=== PATIENT | female | born 1940 | race African-American/Black ===

== ENCOUNTER 2018-07-07 14:16 | Inpatient (IN) | payer MEDICARE, OTHER ==
[~2018-07-07] VITALS: Ht 170.2 cm; Wt 136.1 kg
--- NOTE | 2018-07-07 14:50 | NUR ---
ED Nurse Note: Pt. AAOx4. Wheeled in to the room. pt. came in due to the swelling on bilateral feet. redness noted on her RLE. Pt. denies any pain on her legs. Dr. Dietrich offered pt. pain medication but pt. refused because per pt. she is not in pain at this time. pt. denies CP and SOB. denies cough. Pt. changed into a gown and attached to site monitor for continuous monitoring. Per pt., Dr. Metzger asked her to go to ER.
--- NOTE | 2018-07-07 14:56 | NUR ---
ED Nurse Note: Dr. Dietrich offered pt. urinary catheter due to administartion of lasix but pt. refused. Placed commode at the bedside
[2018-07-07] MEDS ORDERED: Tetanus/Diptheria/Pertussis Vaccine 0.5ml Syr IM ONE (15:00)
--- NOTE | 2018-07-07 15:08 | Emergency Room Report ---
History of Present Illness General Chief Complaint: Pain Source: Patient Present Illness HPI Patient presents with bilateral leg edema and discoloration and pain that's worsened over the last 3 weeks. She has obesity and hypertension. She denies any diabetes. She's been evaluated for blood clots in the past and says that she's never had a blood clot. She also denies a productive cough, hemoptysis pleuritic chest pain or any chest pain at this time. There is no nausea vomiting or diarrhea or dysuria. She has particular pain in her heels and also in the first metatarsal phalangeal area. She denies any numbness. She states is greater than 10 years since her last tetanus vaccination. She rates the pain 2/10 slightly burning radiating up into her legs. She was doing exercises in the pool but had difficulty arranging the sessions. She states her activity is minimal at this time. She does not modify her diet. She denies depression but is discouraged about losing weight. Allergies: Coded Allergies: No Known Allergies (Unverified , 07/07/18) Patient History Past Medical History: see triage record Social History: Denies: smoking, alcohol use, drug use Social History Narrative lives at [facility] Now: No Reviewed Nursing Documentation: PMH: Agreed; PSxH: Agreed Nursing Documentation-PMH Past Medical History: No History, Except For Hx Hypertension: Yes Review of Systems All Other Systems: negative except mentioned in HPI Physical Exam Vital Signs Date Time Temp Pulse Resp B/P (MAP) Pulse Ox O2 Delivery O2 Flow Rate FiO2 07/07/18 14:23 98.2 84 20 167/90 98 Room Air Sp02 EP Interpretation: reviewed, normal General Appearance: no apparent distress, GCS 15, obese Head: normocephalic Eyes: bilateral eye normal inspection, bilateral eye PERRL ENT: moist mucus membranes Neck: supple Respiratory: lungs clear, normal breath sounds Cardiovascular #1: regular rate, rhythm, edema - 3+ brawny edema Cardiovascular #2: 2+ radial (R) Gastrointestinal: normal bowel sounds, non tender, soft, overweight Genitourinary: no CVA tenderness Musculoskeletal: back normal, gait/station normal, normal range of motion, Soo's Sign negative Neurologic: alert, oriented x3, grossly normal Psychiatric: mood/affect normal Skin: warm/dry, other - brawney erythematous edema worse on R Medical Decision Making Diagnostic Impression: Primary Impression: Cellulitis, leg Qualified Codes: L03.119 - Cellulitis of unspecified part of limb Additional Impressions: Morbid obesity Leg edema ER Course Patient presents with bilateral leg edema and discoloration. Differential includes venous stasis disease, cellulitis, DVT amongst others. There is no evidence of pulmonary embolus at this time based on her exam. The patient will be evaluated for possible sepsis including EKG and chest x-ray. The patient retreated with Lasix, tetanus. She declines pain medication at this time. In addition antibiotics will be started. EKG without injury. Chest x-ray no infiltrates with mild cardiomegaly. Labs with elevated white count and ESR. CMP essentially normal. BNP is slightly elevated. Urinalysis unremarkable. Antibiotics are begun. Lasix is causing diuresis. Patient is improved but needs IV antibiotics and continued diuresis. Patient admitted to medical floor under the care of Dr. Metzger. Laboratory Tests Test 07/07/18 15:00 07/07/18 16:15 White Blood Count 13.8 K/UL (4.8-10.8) H Red Blood Count 4.39 M/UL (4.20-5.40) Hemoglobin 13.6 G/DL (12.0-16.0) Hematocrit 40.7 % (37.0-47.0) Mean Corpuscular Volume 93 FL (80-99) Mean Corpuscular Hemoglobin 31.1 PG (27.0-31.0) H Mean Corpuscular Hemoglobin Concent 33.5 G/DL (32.0-36.0) Red Cell Distribution Width 11.6 % (11.6-14.8) Platelet Count 216 K/UL (150-450) Mean Platelet Volume 7.8 FL (6.5-10.1) Neutrophils (%) (Auto) 80.5 % (45.0-75.0) H Lymphocytes (%) (Auto) 10.9 % (20.0-45.0) L Monocytes (%) (Auto) 6.4 % (1.0-10.0) Eosinophils (%) (Auto) 1.1 % (0.0-3.0) Basophils (%) (Auto) 1.1 % (0.0-2.0) Erythrocyte Sedimentation Rate 70 MM/HR (0-30) H Prothrombin Time 10.9 SEC (9.30-11.50) Prothrombin Time INR 1.0 (0.9-1.1) PTT 26 SEC (23-33) Sodium Level 143 MMOL/L (136-145) Potassium Level 4.1 MMOL/L (3.5-5.1) Chloride Level 105 MMOL/L (98-107) Carbon Dioxide Level 29 MMOL/L (21-32) Anion Gap 9 mmol/L (5-15) Blood Urea Nitrogen 16 mg/dL (7-18) Creatinine 0.9 MG/DL (0.55-1.30) Estimate Glomerular Filtration Rate mL/min (>60) Glucose Level 110 MG/DL (74-106) H Lactic Acid Level 1.90 mmol/L (0.4-2.0) Uric Acid 6.8 MG/DL (2.6-7.2) Calcium Level 9.4 MG/DL (8.5-10.1) Magnesium Level 2.2 MG/DL (1.8-2.4) Total Bilirubin 0.9 MG/DL (0.2-1.0) Aspartate Amino Transferase (AST) 114 U/L (15-37) H Alanine Aminotransferase (ALT) 35 U/L (12-78) Alkaline Phosphatase 70 U/L (46-116) Total Creatine Kinase 3316 U/L (26-308) H Troponin I 0.000 ng/mL (0.000-0.056) Pro-B-Type Natriuretic Peptide 159 pg/mL (0-125) H Total Protein 7.8 G/DL (6.4-8.2) Albumin 3.4 G/DL (3.4-5.0) Globulin 4.4 g/dL Albumin/Globulin Ratio 0.8 (1.0-2.7) L Urine Color Yellow Urine Appearance Slightly cloudy Urine pH 5 (4.5-8.0) Urine Specific [place] 1.020 (1.005-1.035) Urine Protein 2+ (NEGATIVE) H Urine Glucose (UA) Negative (NEGATIVE) Urine Ketones 2+ (NEGATIVE) H Urine Blood 2+ (NEGATIVE) H Urine Nitrite Negative (NEGATIVE) Urine Bilirubin Negative (NEGATIVE) Urine Urobilinogen Normal MG/DL (0.0-1.0) Urine Leukocyte Esterase 1+ (NEGATIVE) H Urine RBC 5-10 /HPF (0 - 2) H Urine WBC 2-4 /HPF (0 - 2) Urine Squamous Epithelial Cells Moderate /LPF (NONE/OCC) H Urine Bacteria Moderate /HPF (NONE) H EKG Diagnostic Results Rate: normal Rhythm: NSR ST Segments: no acute changes - Left ventricular hypertrophy Rhythm Strip Diag. Results EP Interpretation: yes Rhythm: NSR, no PVC's, no ectopy Chest X-Ray Diagnostic Results Chest X-Ray Diagnostic Results : Chest X-Ray Ordered: Yes # of Views/Limited/Complete: 1 View Indication: Other Interpretation: no consolidation, no effusion, no pneumothorax, other - Increased heart size Impression: No acute disease Electronically Signed by: Electronically signed by Peter Dietrich MD Last Vital Signs Date Time Temp Pulse Resp B/P (MAP) Pulse Ox O2 Delivery O2 Flow Rate FiO2 07/07/18 17:10 98.0 89 20 152/83 100 Room Air Status: improved Disposition: ADMITTED INPATIENT Condition: Serious Referrals: Hudson Metzger MD (PCP) Peter Dietrich MD Jul 07, 2018 15:08
[2018-07-07 15:10] VITALS: BP 195/115
--- NOTE | 2018-07-07 15:18 | NUR ---
ED Nurse Note: unable to scan tdap. Used 2 bar scanners but usman did not scan. All other computers are being used by [facility] nurses
[2018-07-07 15:35] LABS: BASOPHILS % (AUTO) 1.1 % (0.0-2.0); EOSINOPHILS % (AUTO) 1.1 % (0.0-3.0); HEMATOCRIT 40.7 % (37.0-47.0); HEMOGLOBIN 13.6 G/DL (12.0-16.0); LYMPHOCYTES % (AUTO) 10.9 % (20.0-45.0); MEAN CORPUSCULAR VOLUME 93 FL (80-99); MONOCYTES % (AUTO) 6.4 % (1.0-10.0); NEUTROPHILS % (AUTO) 80.5 % (45.0-75.0); PLATELET COUNT 216 K/UL (150-450); RED BLOOD COUNT 4.39 M/UL (4.20-5.40); RED CELL DISTRIBUTION WIDTH 11.6 % (11.6-14.8); WHITE BLOOD COUNT 13.8 K/UL (4.8-10.8)
[2018-07-07 15:51] LABS: ANION GAP 9 mmol/L (5-15); BLOOD UREA NITROGEN 16 mg/dL (7-18); CALCIUM 9.4 MG/DL (8.5-10.1); CARBON DIOXIDE 29 MMOL/L (21-32); CHLORIDE 105 MMOL/L (98-107); CREATININE 0.9 MG/DL (0.55-1.30); POTASSIUM 4.1 MMOL/L (3.5-5.1); SODIUM 143 MMOL/L (136-145)
--- NOTE | 2018-07-07 15:58 | NUR ---
ED Nurse Note: assisted pt. to use bedside commode
[2018-07-07 16:08] LABS: ALANINE AMINOTRANSFERASE 35 U/L (12-78); ALBUMIN 3.4 G/DL (3.4-5.0); ALBUMIN/GLOBULIN RATIO 0.8 (1.0-2.7); ALKALINE PHOSPHATASE 70 U/L (46-116); ASPARTATE AMINO TRANSFERASE 114 U/L (15-37); BILIRUBIN,TOTAL 0.9 MG/DL (0.2-1.0); CREATINE KINASE 3316 U/L (26-308)
--- NOTE | 2018-07-07 16:13 | NUR ---
ED Nurse Note: assisted pt. to go to the bedside commode
[2018-07-07 16:14] VITALS: BP 152/83
--- NOTE | 2018-07-07 16:38 | NUR ---
ED Nurse Note: pt. aware of the admission. Pt. is currently sleeping at this time
[2018-07-07 16:42] LABS: APPEARANCE,URINE SLIGHTLY CLOUDY; BILIRUBIN, URINE NEGATIVE (NEGATIVE); GLUCOSE, URINE (UA) NEGATIVE (NEGATIVE); KETONES,URINE 2+ (NEGATIVE); LEUKOCYTE ESTERASE ,URINE 1+ (NEGATIVE); NITRITE,URINE NEGATIVE (NEGATIVE); PH,URINE 5 (4.5-8.0); PROTEIN,URINE 2+ (NEGATIVE); UROBILINOGEN,URINE NORMAL MG/DL (0.0-1.0)
[2018-07-07 16:44] LABS: COLOR,URINE YELLOW
--- NOTE | 2018-07-07 17:06 | NUR ---
ED Nurse Note: Report given to DEVAN Concepcion via telephone report
--- NOTE | 2018-07-07 17:25 | NUR ---
NURSE NOTES: Received pt at 1725, pt in bed with grandson at bedside. Pt a/o x 4 in no acute distress. Pt denies chest pain, SOB. BP 180/99. Dr. Metzger notified, obtained med orders. Patent IV to right FA. Lower extremity swelling, no open ulcers. Pt left in bed in low position, call light within reach, bed alarm on, BSC at bedside. Pt oriented to room and facility.
--- NOTE | 2018-07-07 17:45 | Geriatric Progress Note ---
Subjective Interval Events Patient reports sting pain, inability to stand over 4-5 days. Called paramedics x 4 to help her move. Spent last night on floor because of inability to stand. Brought to ED. In ED evaluation revealed erythema, tenderness to B distal LEs - ?dx of cellulitis. Admitted for further evaluation and tx. Patient in past recalcitrant to take meds or proceed with dx, tx measures. Present in March 2018 in office having stopped bp meds, taking only vit C & E. In May 2018, noted to have increased distal LE edema, with some chronic changes. No erythema, tenderness or calor, noted. Need for weight loss, HTN tx reviewed. Patient declined. PMH: Chronic LE edema, likely venous insufficiency. Generalized arthritis, likely osteoarthritis, exacerbated by weight issues. Possible component of peripheral neuropathy associated with LE dysesthesias. 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 Hx HTN. Hx "borderline" DM. "Fibroid" breasts. Morbid obesity. ? Sleep disorder. Gait instability. PE notable for moderate distal erythema, tenderness below knees bilateral LEs. No definite calf tenderness. Labs notable for mild leukocytosis, significant elevation CK. Imp: LE edema/osteoarthritis with/without cellulitis leading to pain, tenderness, inability to bear weight. Doubt DVT. Poorly controlled bp. Suspect venous insufficiency. ? underlying DM. ? Geriatric Geriatric Last 24 Hour Vital Signs Date Time Temp Pulse Resp B/P (MAP) Pulse Ox O2 Delivery O2 Flow Rate FiO2 07/07/18 17:10 98.0 89 20 152/83 100 Room Air 07/07/18 16:14 98.2 89 20 152/83 100 Room Air 07/07/18 15:10 98.2 90 20 195/115 98 Room Air 07/07/18 14:23 98.2 84 20 167/90 98 Room Air Laboratory Tests Test 07/07/18 15:00 07/07/18 16:15 White Blood Count 13.8 K/UL (4.8-10.8) H Red Blood Count 4.39 M/UL (4.20-5.40) Hemoglobin 13.6 G/DL (12.0-16.0) Hematocrit 40.7 % (37.0-47.0) Mean Corpuscular Volume 93 FL (80-99) Mean Corpuscular Hemoglobin 31.1 PG (27.0-31.0) H Mean Corpuscular Hemoglobin Concent 33.5 G/DL (32.0-36.0) Red Cell Distribution Width 11.6 % (11.6-14.8) Platelet Count 216 K/UL (150-450) Mean Platelet Volume 7.8 FL (6.5-10.1) Neutrophils (%) (Auto) 80.5 % (45.0-75.0) H Lymphocytes (%) (Auto) 10.9 % (20.0-45.0) L Monocytes (%) (Auto) 6.4 % (1.0-10.0) Eosinophils (%) (Auto) 1.1 % (0.0-3.0) Basophils (%) (Auto) 1.1 % (0.0-2.0) Erythrocyte Sedimentation Rate 70 MM/HR (0-30) H Prothrombin Time 10.9 SEC (9.30-11.50) Prothromb Time International Ratio 1.0 (0.9-1.1) Activated Partial Thromboplast Time 26 SEC (23-33) Sodium Level 143 MMOL/L (136-145) Potassium Level 4.1 MMOL/L (3.5-5.1) Chloride Level 105 MMOL/L (98-107) Carbon Dioxide Level 29 MMOL/L (21-32) Anion Gap 9 mmol/L (5-15) Blood Urea Nitrogen 16 mg/dL (7-18) Creatinine 0.9 MG/DL (0.55-1.30) Estimat Glomerular Filtration Rate mL/min (>60) Glucose Level 110 MG/DL (74-106) H Lactic Acid Level 1.90 mmol/L (0.4-2.0) Uric Acid 6.8 MG/DL (2.6-7.2) Calcium Level 9.4 MG/DL (8.5-10.1) Magnesium Level 2.2 MG/DL (1.8-2.4) Total Bilirubin 0.9 MG/DL (0.2-1.0) Aspartate Amino Transf (AST/SGOT) 114 U/L (15-37) H Alanine Aminotransferase (ALT/SGPT) 35 U/L (12-78) Alkaline Phosphatase 70 U/L (46-116) Total Creatine Kinase 3316 U/L (26-308) H Troponin I 0.000 ng/mL (0.000-0.056) Pro-B-Type Natriuretic Peptide 159 pg/mL (0-125) H Total Protein 7.8 G/DL (6.4-8.2) Albumin 3.4 G/DL (3.4-5.0) Globulin 4.4 g/dL Albumin/Globulin Ratio 0.8 (1.0-2.7) L Urine Color Yellow Urine Appearance Slightly cloudy Urine pH 5 (4.5-8.0) Urine Specific [place] 1.020 (1.005-1.035) Urine Protein 2+ (NEGATIVE) H Urine Glucose (UA) Negative (NEGATIVE) Urine Ketones 2+ (NEGATIVE) H Urine Blood 2+ (NEGATIVE) H Urine Nitrite Negative (NEGATIVE) Urine Bilirubin Negative (NEGATIVE) Urine Urobilinogen Normal MG/DL (0.0-1.0) Urine Leukocyte Esterase 1+ (NEGATIVE) H Urine RBC 5-10 /HPF (0 - 2) H Urine WBC 2-4 /HPF (0 - 2) Urine Squamous Epithelial Cells Moderate /LPF (NONE/OCC) H Urine Bacteria Moderate /HPF (NONE) H Height (Feet): 5 Height (Inches): 4.00 Weight (Pounds): 300 Hudson Metzger MD Jul 07, 2018 17:45
[2018-07-07 18:05] VITALS: BP 180/99
[2018-07-07 19:15] VITALS: BP 174/104
--- NOTE | 2018-07-07 19:40 | NUR ---
NURSE NOTES: Received patient in bed, alert x 4, able to make needs known, Bed in low position and lock engaged, Instructed how to use call light, Call light and need with in reach, Will continue to monitor.
--- NOTE | 2018-07-07 19:53 | NUR ---
HAND-OFF: Report given to DEVAN Espinoza. Endorsed BP 174/104 15 min s/p norvasc administration. Nurse to flu on BP. Wesley HARTMAN
--- NOTE | 2018-07-07 20:45 | NUR ---
NURSE NOTES: Orthostatic vital sign taken, Patient refused taking blood pressure with standing position, Explained benefits and risks, Patient verbalized understanding, but still refused.
[2018-07-07] MEDS: NovoLOG Insulin Flexpen SUBQ SCH (21:00)
[2018-07-07] MEDS: Enoxaparin 40mg Inj SUBQ SCH (21:00)
[2018-07-08] VITALS: BP 161/101
[2018-07-08 04:00] VITALS: BP 159/89
--- NOTE | 2018-07-08 05:00 | History and Physical Report ---
DATE OF ADMISSION: 07/07/2018 PATIENT ID: The patient is an 78-year-old woman, who presented to emergency room with inability to stand due to pain in both her distal lower extremities. HISTORY OF PRESENT ILLNESS: The patient, who has a number of chronic medical problems, has been somewhat recalcitrant to therapy. She had a history of hypertension, morbid obesity, and borderline diabetes as well as visual loss due to Fuchs dystrophy and cataracts. She was started on antihypertensive therapy, but after not being seen for approximately 10 months, presented to the office in March 2018 reporting that she had stopped her blood pressure medications and was taking only vitamin C and E and feeling that she was better off the medications. In May 2018, she presented with increased distal lower extremity edema with some chronic changes. At that time, there is no erythema, tenderness, or calor. The need for both weight loss and hypertensive therapy were reviewed with the patient, but she declined feeling that she did not benefit from attempts at weight control and antihypertensives. She described some distal lower extremity discomfort at that time, but was primary concerned about what she described as "bumps" on her lower extremities, which appeared to look like chronic venous stasis changes. According to the patient's history, she began to develop markedly increased discomfort in the lower extremities with stinging pain on attempting to stand over the last four to five days. She had to call the paramedics on four occasions in order to help move when she was incapacitated. Reportedly, she spent last night on the floor because of inability to stand on her own. She called this morning and was subsequently brought to the emergency department for further evaluation and treatment. In the emergency department, she was noted to have erythema and tenderness in bilateral distal lower extremities. Dr. Dietrich felt the patient may have evidence of a cellulitis. The patient was admitted for further evaluation and treatment. The patient denies having any additional symptoms other than that described. She specifically denies having any chest pain, palpitation, shortness of breath, fever, or chills. PAST MEDICAL HISTORY: 1. The patient's past medical history is notable for chronic lower extremity edema present for years, likely primarily associated with venous insufficiency, but possibly multifactorial. 2. History of generalized arthritis, likely osteoarthritis, exacerbated by weight issues. 3. Possible component of peripheral neuropathy associated with lower extremity dysesthesias. 4. History of visual loss due to Fuchs dystrophy and cataract disease. 5. History of hypertension. 6. History of "borderline" diabetes mellitus. 7. "Fibroid" breasts. 8. Morbid obesity. 9. Possible sleep disorder. The patient has declined treatment with CPAP. 10. Gait instability. 11. History of two C-sections in 1964 and 1966. CURRENT MEDICATIONS: Included only vitamin supplements as she has discontinued her medications. 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 She retired in 1992. 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 She apparently lives in a senior building in a one bedroom apartment. She has occasional part-time help. She had previously used the cane starting around 2011 and began using a walker with a seat in approximately 2015. She currently is fairly immobile, primarily being in wheelchair. She requires assistance with cooking and also needs to be driven because of her vision. She has a family history of pancreatic cancer in mother and diabetes in her father with a history of her mother having tuberculosis in her 30s. REVIEW OF SYSTEMS: The patient denies any neurologic changes. She reports no difficulty with respirations even lying flat in the bed. She reports no chest pain or palpitations or gastrointestinal symptoms and no change in bowel or bladder. She primarily describes the lower extremity discomfort as noted. The patient has a history of not sleeping well, which she attributes to watching television late at night, but given her obesity, there is a significant likelihood she has a component of obstructive sleep apnea, but has not been amenable to intensive therapy in that regard. There has been a history of hypertension, obesity, and "borderline" diabetes for at least 10 years, likely more. PHYSICAL EXAMINATION: VITAL SIGNS: The patient's initial blood pressure is 152/83, heart rate is 89, and respiratory rate is 20 with a pulse ox of 100% on room air. GENERAL: The patient is a well-developed, somewhat uncomfortable, and morbidly obese woman, not in any severe physical distress. HEAD AND NECK: Reveals normocephalic and atraumatic skull. Sclerae are anicteric. The oropharynx is adequately hydrated. The neck has normal range of motion without masses appreciated. CHEST: Reveals distant, but relatively clear breath sounds. CARDIAC: Reveals regular rhythm without gallops, murmurs, or rubs appreciated. BREASTS: The breasts are without dominant masses. No adenopathy appreciated. ABDOMEN: Reveals normal bowel sounds. It is soft and nontender without masses or organomegaly. EXTREMITIES: Revealed opypclef-ap-wjxvzk distal edema with chronic pigmentary changes and scaling. There is some erythema distal to the knees bilaterally, but no definite warmth or evidence of fluctuance. There is no calf tenderness. The patient is able to move her feet without severe discomfort, so there is no clear evidence of compartment like syndrome and no definite calf tenderness. LABORATORY DATA: The patient's laboratory work includes a white count of 13.8, hematocrit of 40.7, and platelet count of 216,000. Differential reveals mild neutrophilia. Her sedimentation rate is 70. The INR is 1.0 and PTT is 26. Sodium 143, potassium 4.1, chloride 105, bicarbonate 29, BUN 16, creatinine 0.9, and glucose 110. Lactate 1.9. Uric acid 6.8. Calcium 9.4. Magnesium 2.2. Total bilirubin 0.9. AST 114, ALT 35, and alkaline phosphatase 70. Total CK is 3316. Troponin is 0. ProBNP 159. Total protein 7.8. Albumin 3.4. The urinalysis reveals pH of 1.02, 2+ protein, 2+ ketones, 2+ blood, 1+ leukocyte esterase, 5 to 10 RBCs, 2 to 4 WBCs, moderate squamous epithelial cells and bacteria. A chest x-ray was done, but it is not immediately available at this time. IMPRESSION: The patient presents with significant pain and discomfort and inability to ambulate or even to mobilize herself for transfers. At the present time, she has edema and erythema with discomfort in the distal lower extremities. Whether this is due to chronic venous insufficiency and osteoarthritis alone or with superimposed cellulitis is not entirely clear. The possibility ofother contributing etiologies including deep venous thrombosis obviously need to be considered, but seem less likely. The patient has an elevated CK, which suggests an element of rhabdomyolysis. Whether this is primarily due to her being on the floor overnight and immobile or whether it is suggestive of an actual inflammatory muscle disease is not clear at this time. The initial treatment will involve some diuresis of lower extremities in order to mitigate the edema and determine whether there maybe actually an underlying component of cellulitis. Cultures have been obtained in the emergency room. Cardiac evaluation will be done in terms of a cardiac echo. Vascular studies, both venous and arterial will be done of the lower extremities. The patient's glycohemoglobin will be checked along with Accu-Chek to determine whether there is an element of hyperglycemia. Prophylactic anticoagulation with Lovenox will be initiated in the absence of clear-cut evidence of deep venous thrombosis. The patient likely requires considerably improved control of her hypertension and therefore antihypertensives will be initiated at this time to attempt to control her blood pressure. Further rheumatologic evaluation may be necessary if the CK remains significantly elevated after the patient's initial presentation. In the long run, the patient clearly will require additional assistance whether she is able to significantly rehabilitate with an attempt at weight loss and improve control of her blood pressure will be dependent on her ability to comply with some of medication treatment. Additional interventions will be considered once the patient's initial response to therapy is observed and further laboratory data is available. Hudson Metzger M.D. DR: EDU JOB#: [id number] CC: CHANTAL
[2018-07-08] MEDS: NovoLOG Insulin Flexpen SUBQ SCH ×4 (06:14→20:35)
--- NOTE | 2018-07-08 06:33 | NUR ---
NURSE NOTES: Patient refused acute checks and SUBQ injections, Explained benefits and risks factor, Patient verbalized understanding, but still refused.
--- NOTE | 2018-07-08 07:13 | NUR ---
HAND-OFF: Report given to DEVAN Concepcion.
--- NOTE | 2018-07-08 07:32 | NUR ---
NURSE NOTES: Pt in bed a/o x 4 in no acute distress. Pt is having venous duplex done. Pt denies SOB, chest pain. Noticeable LE edema. Pt left in bed in low position, call light within reach, bed alarm on.
[2018-07-08 07:57] LABS: ALANINE AMINOTRANSFERASE 38 U/L (12-78); ALBUMIN 2.8 G/DL (3.4-5.0); ALBUMIN/GLOBULIN RATIO 0.7 (1.0-2.7); ALKALINE PHOSPHATASE 58 U/L (46-116); ANION GAP 9 mmol/L (5-15); ASPARTATE AMINO TRANSFERASE 72 U/L (15-37); BILIRUBIN,TOTAL 0.8 MG/DL (0.2-1.0); BLOOD UREA NITROGEN 13 mg/dL (7-18); CALCIUM 8.6 MG/DL (8.5-10.1); CARBON DIOXIDE 30 MMOL/L (21-32); CHLORIDE 104 MMOL/L (98-107); CREATINE KINASE 1811 U/L (26-308); CREATININE 0.9 MG/DL (0.55-1.30); SODIUM 143 MMOL/L (136-145)
[2018-07-08 08:00] VITALS: BP 133/71
[2018-07-08 08:29] LABS: BASOPHILS % (AUTO) 0.8 % (0.0-2.0); EOSINOPHILS % (AUTO) 2.1 % (0.0-3.0); HEMATOCRIT 37.6 % (37.0-47.0); HEMOGLOBIN 12.6 G/DL (12.0-16.0); LYMPHOCYTES % (AUTO) 11.1 % (20.0-45.0); MEAN CORPUSCULAR VOLUME 91 FL (80-99); MONOCYTES % (AUTO) 6.3 % (1.0-10.0); NEUTROPHILS % (AUTO) 79.7 % (45.0-75.0); PLATELET COUNT 199 K/UL (150-450); RED BLOOD COUNT 4.11 M/UL (4.20-5.40); RED CELL DISTRIBUTION WIDTH 11.6 % (11.6-14.8); WHITE BLOOD COUNT 11.4 K/UL (4.8-10.8)
--- NOTE | 2018-07-08 10:04 | NUR ---
Called Dr. Metzger, left message with Jose. Called to notify of k+ 3.0 and that pt refuses accu check/insulin administration. Held lasix for now. Will continue to monitor, awaiting call back. Addendum: 07/08/18 at 1055 by Carmen Goldberg RN Received call from Dr. Metzger, per him give lasix. Obtained new order for KCL, refer to orders. aware pt is refusing insuling/accu checks. Per him re educate and reinforce. He will be in this afternoon to discuss further needs with patient.
--- NOTE | 2018-07-08 11:38 | NUR ---
P.T Note: P.T evaluation completed and treatment initiated. Please refer to P.T evaluation for current functional status. Pt presented generalized weakness and decreased activity tolerance affecting overall functional mobility and safety. Pt currently required MOD A X 1 and extended time for bed mobility and transfer mobilities and MIN A x 1 for gait/ambulation activities using her rollator walker. Skilled P.T service is warranted improve strength, endurance and balance to improve safety and functional mobility independence. Recommend SNF for short term rehab VS home with P.T depending on progress.
[2018-07-08 12:00] VITALS: BP 161/90
--- NOTE | 2018-07-08 13:00 | NUR ---
NURSE NOTES: Pt began c/o burning sensation to Right arm with potassium infusion. K+ bag stopped. Called Dr. Metzger and left message with Yanelis to notify. Awaiting new orders, will continue to monitor.
[2018-07-08 16:00] VITALS: BP 157/79
--- NOTE | 2018-07-08 16:05 | NUR ---
CASE MANAGEMENT:REVIEW FROM HOME CC; BILATERAL LEG PAIN, SWELLING AND DISCOLORATION SI: CELLULITIS AND EDEMA 98.2 84 20 195/115 98% ON RA WBC+13.8 ESR+70 TCK+3316 IS: IV LASIX CXR TdP IM BLOOD CX URINE REFLEX : MED/SURG STATUS Addendum: 07/09/18 at 0732 by SCOT CHAVIS LVN LVN INTERQUAL CRITERIA MET
--- NOTE | 2018-07-08 17:27 | NUR ---
NURSE NOTES: Pt educated on need for accu checks and insuling adminsitration. Pt refuses despite education provided. States she does not like needles therefore refuses "poking." Dr. Metzger has been informed.
--- NOTE | 2018-07-08 18:58 | Geriatric Progress Note ---
Subjective Interval Events Patient seen walking with rollator from restroom to bed. Some SOB with exertion. Denies pain on weight bearing. Refused various meds, fingersticks, etc. Staff reports patient ate well, c/o severe pain with movement of sheets, no pain when not moving. P.T. documents mod A for bed mobility and transfers, min A for ambulation with rolling walker to 20'. Labs with decreasing wbc and CPK. BP elevated but not critically high. Labs not remarkable other varma. Vascular studies with no DVT or arterial issues. Constitutional: Denies: chills, fever Respiratory: Reports: INGRAM/SOB Gastrointestinal/Abdominal: Denies: abdominal pain, constipation, diarrhea, nausea, vomiting Genitourinary: Denies: dysuria Sleep: Reports: doesn't sleep well Geriatric Geriatric Last 24 Hour Vital Signs Date Time Temp Pulse Resp B/P (MAP) Pulse Ox O2 Delivery O2 Flow Rate FiO2 07/08/18 16:00 98.1 81 20 157/79 (105) 94 07/08/18 12:00 98.0 71 19 161/90 (113) 94 07/08/18 09:00 Room Air 07/08/18 09:00 74 70 07/08/18 08:00 98.4 81 20 133/71 (91) 94 07/08/18 04:00 97.7 78 20 159/89 (112) 96 07/08/18 00:00 97.9 77 20 161/101 (121) 95 07/07/18 21:00 Room Air 07/07/18 20:45 86 85 07/07/18 19:15 83 174/104 (127) Intake and Output 07/07/18 07/08/18 18:59 06:59 Intake Total 250 ml Output Total 0 ml Balance 0 ml 250 ml Intake Oral 250 ml Output Urine Total 0 ml # Voids 2 2 Laboratory Tests Test 07/08/18 07:05 White Blood Count 11.4 K/UL (4.8-10.8) H Red Blood Count 4.11 M/UL (4.20-5.40) L Hemoglobin 12.6 G/DL (12.0-16.0) Hematocrit 37.6 % (37.0-47.0) Mean Corpuscular Volume 91 FL (80-99) Mean Corpuscular Hemoglobin 30.7 PG (27.0-31.0) Mean Corpuscular Hemoglobin Concent 33.5 G/DL (32.0-36.0) Red Cell Distribution Width 11.6 % (11.6-14.8) Platelet Count 199 K/UL (150-450) Mean Platelet Volume 6.7 FL (6.5-10.1) Neutrophils (%) (Auto) 79.7 % (45.0-75.0) H Lymphocytes (%) (Auto) 11.1 % (20.0-45.0) L Monocytes (%) (Auto) 6.3 % (1.0-10.0) Eosinophils (%) (Auto) 2.1 % (0.0-3.0) Basophils (%) (Auto) 0.8 % (0.0-2.0) Sodium Level 143 MMOL/L (136-145) Potassium Level 3.0 MMOL/L (3.5-5.1) L Chloride Level 104 MMOL/L (98-107) Carbon Dioxide Level 30 MMOL/L (21-32) Anion Gap 9 mmol/L (5-15) Blood Urea Nitrogen 13 mg/dL (7-18) Creatinine 0.9 MG/DL (0.55-1.30) Estimat Glomerular Filtration Rate mL/min (>60) Glucose Level 112 MG/DL (74-106) H Hemoglobin A1c 5.8 % (4.3-6.0) Calcium Level 8.6 MG/DL (8.5-10.1) Magnesium Level 1.9 MG/DL (1.8-2.4) Total Bilirubin 0.8 MG/DL (0.2-1.0) Aspartate Amino Transf (AST/SGOT) 72 U/L (15-37) H Alanine Aminotransferase (ALT/SGPT) 38 U/L (12-78) Alkaline Phosphatase 58 U/L (46-116) Total Creatine Kinase 1811 U/L (26-308) H Pro-B-Type Natriuretic Peptide 337 pg/mL (0-125) H Total Protein 6.6 G/DL (6.4-8.2) Albumin 2.8 G/DL (3.4-5.0) L Globulin 3.8 g/dL Albumin/Globulin Ratio 0.7 (1.0-2.7) L Thyroid Stimulating Hormone (TSH) 3.322 uiU/mL (0.358-3.740) Current Medications Medications (Trade) Dose Ordered Sig/Ghazal Route PRN Reason Start Time Stop Time Status Last Admin Dose Admin Acetaminophen (Tylenol) 650 mg Q4H PRN ORAL Mild Pain (Pain Scale 1-3) 07/07/18 18:00 08/06/18 17:59 Amlodipine Besylate (Norvasc) 10 mg Q8H PRN ORAL SBP >170 OR DYASTOLIC >95 07/07/18 18:15 08/06/18 18:14 07/07/18 18:32 Dextrose (Dextrose 50%) 25 ml Q30M PRN IV Hypoglycemia 07/07/18 18:00 08/06/18 17:59 Dextrose (Dextrose 50%) 50 ml Q30M PRN IV Hypoglycemia 07/07/18 18:00 08/06/18 17:59 Enoxaparin Sodium (Lovenox) 40 mg QHS SUBQ 07/07/18 21:00 08/06/18 20:59 Furosemide (Lasix) 10 mg EVERY 12 HOURS IV 07/07/18 21:00 08/06/18 20:59 07/08/18 12:34 Insulin Aspart (NovoLOG) BEFORE MEALS AND HS SUBQ 07/07/18 21:00 08/06/18 20:59 Height (Feet): 5 Height (Inches): 7.00 Weight (Pounds): 300 Hudson Metzger MD Jul 08, 2018 18:58
--- NOTE | 2018-07-08 19:20 | NUR ---
HAND-OFF: Report given to DEVAN Acosta. Pt left in bed in low position, call light within reach, skid socks on. Pt placing orders during change of shift, Karla to follow up. Notified Karla and Dr. Metzger of orthostatic VS, per Dr. he will be changing BP medications.
--- NOTE | 2018-07-08 19:30 | NUR ---
NURSE NOTES: Received patient in bed, alert x 4, able to make needs known, No acute distress noted, no c/o pain or any discomfort noted at this time, Bed in lowest position and locked Call light and need with in reach, Will continue to monitor.
[2018-07-08 20:00] VITALS: BP 168/97
--- NOTE | 2018-07-08 20:30 | NUR ---
NURSE NOTES: Orthostatic vital sign taken, Patient refused checking blood pressure with standing position, Explained benefits and risks, Patient verbalized understanding, but still refused.
[2018-07-08] MEDS: Enoxaparin 40mg Inj SUBQ SCH (20:42)
--- NOTE | 2018-07-08 23:31 | NUR ---
RESPIRATORY NOTE: Alert/awake pt refused to use the BiPAP at this time, states "i don't think i need it" & denies SOB/chest pain. Educated pt about BiPAP benefits, pt understood & claimed her used to have one & still refused to wear it at the moment. Bedside RN Jorge Luis aware. Pt on RA spO2 96%, HR 88, RR 18, B/S robles. clear. ABG drawn previously(see lab for results). BiPAP in room as standby. Will continue to monitor pt.
[2018-07-09] VITALS (8 sets, daily range): BP systolic 139–205; BP diastolic 77–102
--- NOTE | 2018-07-09 06:16 | NUR ---
NURSE NOTES: Dr. Metzger made aware of patient's high BP and obtained an order of Norvasc 10mg one time only.
[2018-07-09] MEDS: NovoLOG Insulin Flexpen SUBQ SCH ×4 (06:36→21:29)
--- NOTE | 2018-07-09 07:33 | NUR ---
HAND-OFF: Report given to DEVAN Walsh.
--- NOTE | 2018-07-09 07:40 | NUR ---
NURSE NOTES: Received patient in bed,awake and alert and oriented x4. Not in acute respiratory distress. Patient denies chest pain, SOB or blurred vision due to elevated blood pressure. Per shift production associate nurse, patient's blood pressure was elevated and would see the patient today for that. Will continue o monitor and follow up with Dr. Metzger. IV intact, no s/s of infiltration. Bed is in lowest position and locked. Bed alarm is on and side rails up. Will continue to monitor.
[2018-07-09 08:30] LABS: BASOPHILS % (AUTO) 0.6 % (0.0-2.0); EOSINOPHILS % (AUTO) 2.4 % (0.0-3.0); HEMATOCRIT 39.7 % (37.0-47.0); HEMOGLOBIN 13.3 G/DL (12.0-16.0); LYMPHOCYTES % (AUTO) 17.2 % (20.0-45.0); MEAN CORPUSCULAR VOLUME 92 FL (80-99); MONOCYTES % (AUTO) 7.3 % (1.0-10.0); NEUTROPHILS % (AUTO) 72.5 % (45.0-75.0); PLATELET COUNT 212 K/UL (150-450); RED BLOOD COUNT 4.34 M/UL (4.20-5.40); RED CELL DISTRIBUTION WIDTH 11.5 % (11.6-14.8); WHITE BLOOD COUNT 9.6 K/UL (4.8-10.8)
[2018-07-09 08:49] LABS: ANION GAP 10 mmol/L (5-15); BLOOD UREA NITROGEN 12 mg/dL (7-18); CALCIUM 8.9 MG/DL (8.5-10.1); CARBON DIOXIDE 32 MMOL/L (21-32); CHLORIDE 103 MMOL/L (98-107); CREATININE 0.9 MG/DL (0.55-1.30); POTASSIUM 3.2 MMOL/L (3.5-5.1); SODIUM 144 MMOL/L (136-145)
--- NOTE | 2018-07-09 10:00 | NUR ---
NURSE NOTES: Patient refused to take po meds since she did not eat breakfast. RN followed up with dietary to come up and discuss with the patient about her menu and patient gave menu for today and tomorrow. Dietitian will come up later to talk to the patient.Will follow up.
--- NOTE | 2018-07-09 10:56 | Consultation ---
History of Present Illness General Date patient seen: Jul 09, 2018 Time patient seen: 10:49 Chief Complaint: CYNTHIA Referring physician: Hudson Metzger MD Reason for Consultation: Evaluate for DANNY Present Illness HPI 78 F h/o morbid obesity, limited mobility, chronic CYNTHIA, HTN, HL, reluctant to medical therapy a/w acute on chronic CYNTHIA and pain, possible cellulitis vs chronic venous insufficiency. Pulmonary consultation has been called for evaluation of possible DANNY, OHS. The patient has a long h/o snoring, EDS, apneas, frequent awakenings. She has never had a sleep study. Her has DANNY and the patient is aversive to the diagnosis. Last night I ordered empiric CPAP 12 qHS as a trial but she declined. Her ABG is: 7.48/43/82/31/96. Allergies: Coded Allergies: FISH CONTAINING PRODUCTS (Verified Allergy, Unknown, 07/08/18) per patient SHELLFISH DERIVED (Verified Allergy, Unknown, 07/08/18) per patient Patient History Healthcare decision maker self Resuscitation status Full Code Advanced Directive on File No Past Medical/Surgical History Past Medical/Surgical History: (1) Morbid obesity (2) Cellulitis, leg (3) Leg edema Review of Systems Constitutional: Reports: weakness Eye: Reports: no symptoms ENT: Reports: no symptoms Respiratory: Reports: no symptoms, other - + snoring + EDS + apneas Cardiovascular: Reports: no symptoms Gastrointestinal: Reports: no symptoms Genitourinary: Reports: no symptoms Musculoskeletal: Reports: muscle pain Skin: Reports: other - edema Psychiatric: Reports: no symptoms Neurological: Reports: no symptoms Endocrine: Reports: no symptoms Hematologic/Lymphatic: Reports: no symptoms Physical Exam General Appearance: morbidly obese Lines, tubes and drains: peripheral HEENT: normocephalic, atraumatic, anicteric, mucous membranes moist, other - MP 4 Neck: non-tender, normal alignment, supple Respiratory/Chest: chest wall non-tender, lungs clear - but distant, normal breath sounds, no respiratory distress, no accessory muscle use Cardiovascular/Chest: normal peripheral pulses, normal rate, regular rhythm Abdomen: normal bowel sounds, non tender, soft, no organomegaly, no mass Extremities: moderate edema Last 24 Hour Vital Signs Date Time Temp Pulse Resp B/P (MAP) Pulse Ox O2 Delivery O2 Flow Rate FiO2 07/09/18 09:12 87 20 Room Air 21 07/09/18 08:00 97.9 81 19 160/92 (114) 98 07/09/18 06:35 84 205/102 07/09/18 06:00 205/102 (136) 07/09/18 04:00 98.9 84 20 175/87 (116) 93 07/09/18 00:00 99.0 83 20 156/93 (114) 96 07/08/18 23:29 88 18 Room Air 21 07/08/18 21:00 Room Air 07/08/18 20:30 90 94 07/08/18 20:27 92 168/97 07/08/18 20:00 97.7 84 20 168/97 (120) 92 07/08/18 18:59 83 93 110 07/08/18 16:00 98.1 81 20 157/79 (105) 94 07/08/18 12:00 98.0 71 19 161/90 (113) 94 Intake and Output 07/08/18 07/09/18 19:00 07:00 Intake Total 360 ml 150 ml Output Total 300 ml 700 ml Balance 60 ml -550 ml Intake Oral 360 ml 150 ml Output Urine Total 300 ml 700 ml # Voids 2 Laboratory Tests Test 07/08/18 18:58 07/09/18 07:20 Arterial Blood pH 7.480 (7.350-7.450) Arterial Blood Partial Pressure CO2 43.2 mmHg (35.0-45.0) Arterial Blood Partial Pressure O2 82.0 mmHg (75.0-100.0) Arterial Blood HCO3 31.5 mmol/L (22.0-26.0) H Arterial Blood Oxygen Saturation 96.2 % (95-100) Arterial Blood Base Excess 7.1 (-2-2) H Al Test Positive White Blood Count 9.6 K/UL (4.8-10.8) Red Blood Count 4.34 M/UL (4.20-5.40) Hemoglobin 13.3 G/DL (12.0-16.0) Hematocrit 39.7 % (37.0-47.0) Mean Corpuscular Volume 92 FL (80-99) Mean Corpuscular Hemoglobin 30.6 PG (27.0-31.0) Mean Corpuscular Hemoglobin Concent 33.4 G/DL (32.0-36.0) Red Cell Distribution Width 11.5 % (11.6-14.8) L Platelet Count 212 K/UL (150-450) Mean Platelet Volume 7.4 FL (6.5-10.1) Neutrophils (%) (Auto) 72.5 % (45.0-75.0) Lymphocytes (%) (Auto) 17.2 % (20.0-45.0) L Monocytes (%) (Auto) 7.3 % (1.0-10.0) Eosinophils (%) (Auto) 2.4 % (0.0-3.0) Basophils (%) (Auto) 0.6 % (0.0-2.0) Sodium Level 144 MMOL/L (136-145) Potassium Level 3.2 MMOL/L (3.5-5.1) L Chloride Level 103 MMOL/L (98-107) Carbon Dioxide Level 32 MMOL/L (21-32) Anion Gap 10 mmol/L (5-15) Blood Urea Nitrogen 12 mg/dL (7-18) Creatinine 0.9 MG/DL (0.55-1.30) Estimat Glomerular Filtration Rate mL/min (>60) Glucose Level 120 MG/DL (74-106) H Calcium Level 8.9 MG/DL (8.5-10.1) Magnesium Level 2.0 MG/DL (1.8-2.4) Height (Feet): 5 Height (Inches): 7.00 Weight (Pounds): 300 Medications Current Medications Medications (Trade) Dose Ordered Sig/Ghazal Route PRN Reason Start Time Stop Time Status Last Admin Dose Admin Acetaminophen (Tylenol) 650 mg Q4H PRN ORAL Mild Pain (Pain Scale 1-3) 07/07/18 18:00 08/06/18 17:59 Amlodipine Besylate (Norvasc) 5 mg QHS ORAL 07/08/18 21:00 08/07/18 20:59 07/08/18 20:27 Dextrose (Dextrose 50%) 25 ml Q30M PRN IV Hypoglycemia 07/07/18 18:00 08/06/18 17:59 Dextrose (Dextrose 50%) 50 ml Q30M PRN IV Hypoglycemia 07/07/18 18:00 08/06/18 17:59 Duloxetine HCl (Cymbalta) 20 mg DAILY ORAL 07/09/18 09:00 08/08/18 08:59 Enoxaparin Sodium (Lovenox) 40 mg QHS SUBQ 07/07/18 21:00 08/06/18 20:59 07/08/18 20:42 Furosemide (Lasix) 10 mg EVERY 12 HOURS IV 07/07/18 21:00 08/06/18 20:59 07/09/18 09:49 Insulin Aspart (NovoLOG) BEFORE MEALS AND HS SUBQ 07/07/18 21:00 08/06/18 20:59 07/09/18 06:36 Potassium Chloride (K-Dur) 20 meq TWICE A DAY ORAL 07/08/18 19:30 08/07/18 19:29 07/08/18 20:27 Assessment/Plan Problem List: (1) Apnea ICD Codes: R06.81 - Apnea, not elsewhere classified SNOMED: 8874583, 782422426 (2) Excessive daytime sleepiness ICD Codes: G47.19 - Other hypersomnia SNOMED: 736466331511 (3) Snoring ICD Codes: R06.83 - Snoring SNOMED: 04304931 (4) Morbid obesity ICD Codes: E66.01 - Morbid (severe) obesity due to excess calories SNOMED: 703365198 (5) Leg edema ICD Codes: R60.0 - Localized edema SNOMED: 355609447 Assessment/Plan Given the patients stated history, body habitus and exam I suspect she has underlying DANNY/OHV. She will need a formal sleep study (PSG) with CPAP/BiPAP titration as an outpatient. For the time being she stated she is amenable to a trial of CPAP this evening. We had a long discussion about the risks and benefits of PAP therapy and the danger of untreated DANNY. -Trial of CPAP 12 cm H2O -F/U TTE, evaluate PA pressued -Outpatient PSG with CPAP/BiPAP titration -Weight loss/diet/exercise -Monitor volumes and renal function -DVT Px: LMWH Suman Mcdonnell MD Jul 09, 2018 10:56
--- NOTE | 2018-07-09 11:30 | NUR ---
NURSE NOTES: Orthostatic vital sign taken, Patient refused checking blood pressure with standing position, Explained benefits and risks, Patient verbalized understanding, but still refused.
--- NOTE | 2018-07-09 12:17 | NUR ---
NURSE NOTES: left message with Dr. Metzger office sec about patient and family wanting to speak with him. Son phone number left with laboratory secretary for call back. Reported K level today of 3.2
--- NOTE | 2018-07-09 12:30 | NUR ---
NURSE NOTES: Dr. Metzger called back and relayed potassium level of 3.2 and elevated pressure of 163/94, no new order for now. Dr. Metzger will see the patient soon. Patient denies SOB, chest pain or headache. alert and orientedx4. Patient's son talked to Dr. Metzger on the phone.
--- NOTE | 2018-07-09 15:28 | Geriatric Progress Note ---
Assessment/Plan Problems: (1) Gait instability (2) Impaired gait and mobility (3) Peripheral neuropathy (4) Uncontrolled hypertension (5) Morbid obesity (6) Leg edema (7) Apnea (8) Excessive daytime sleepiness (9) Candidal intertrigo Assessment/Plan HTN still not optimally controlled. Add TTS-1 patch. Continue Cymbalta for neuropathic sxs. Start Lotrimin for intertriginous rash. CPAP trial per Dr. Mcdonnell. Mobilize as tolerated. Nutrition evaluation for weight loss. Expect d/c to SNF for rehab. Discussed with: patient, family, hospital staff Subjective Interval Events Patient in somewhat better spirits, commits to compliance with treatment. Seen by Dr. Mcdonnell. CPAP trial a night planned. Bps running high, but improved. Will add TTS-1 to simplify compliance and improve control. Other medications reviewed with patient as well. Discussed at length x 2 by phone with two sons, one [facility], one in [place]. Discussed pathophysiology, medication regimen, additional treatment modalities, discharge options, prognosis, functional level. Sons concur with approach. They express understanding of prior non-compliance with treatment, and are intending to monitor patient's compliance in the future. Patient without new sxs today. Labs still with hypokalemia. ABG with suggestion of chronic retention, but possible element of metabolic alkalosis with diuresis. Constitutional: Denies: chills, fever Respiratory: Denies: shortness of breath Cardiovascular: Denies: chest pain, palpitations Gastrointestinal/Abdominal: Denies: abdominal pain Genitourinary: Denies: dysuria Musculoskeletal: Denies: back pain Neurologic: Reports: other - dyperesthesias, dysesthesias. Sleep: Reports: doesn't sleep well Geriatric Geriatric Last 24 Hour Vital Signs Date Time Temp Pulse Resp B/P (MAP) Pulse Ox O2 Delivery O2 Flow Rate FiO2 07/09/18 12:49 98.8 81 19 151/94 (113) 97 07/09/18 12:00 98.8 81 19 151/94 (113) 97 07/09/18 11:30 81 83 07/09/18 09:12 87 20 Room Air 21 07/09/18 09:00 Room Air 07/09/18 08:00 97.9 81 19 160/92 (114) 98 07/09/18 06:35 84 205/102 07/09/18 06:00 205/102 (136) 07/09/18 04:00 98.9 84 20 175/87 (116) 93 07/09/18 00:00 99.0 83 20 156/93 (114) 96 07/08/18 23:29 88 18 Room Air 21 07/08/18 21:00 Room Air 07/08/18 20:30 90 94 07/08/18 20:27 92 168/97 07/08/18 20:00 97.7 84 20 168/97 (120) 92 07/08/18 18:59 83 93 110 07/08/18 16:00 98.1 81 20 157/79 (105) 94 Intake and Output 07/08/18 07/09/18 19:00 07:00 Intake Total 360 ml 150 ml Output Total 300 ml 700 ml Balance 60 ml -550 ml Intake Oral 360 ml 150 ml Output Urine Total 300 ml 700 ml # Voids 2 Laboratory Tests Test 07/08/18 18:58 07/09/18 07:20 Arterial Blood pH 7.480 (7.350-7.450) Arterial Blood Partial Pressure CO2 43.2 mmHg (35.0-45.0) Arterial Blood Partial Pressure O2 82.0 mmHg (75.0-100.0) Arterial Blood HCO3 31.5 mmol/L (22.0-26.0) H Arterial Blood Oxygen Saturation 96.2 % (95-100) Arterial Blood Base Excess 7.1 (-2-2) H Al Test Positive White Blood Count 9.6 K/UL (4.8-10.8) Red Blood Count 4.34 M/UL (4.20-5.40) Hemoglobin 13.3 G/DL (12.0-16.0) Hematocrit 39.7 % (37.0-47.0) Mean Corpuscular Volume 92 FL (80-99) Mean Corpuscular Hemoglobin 30.6 PG (27.0-31.0) Mean Corpuscular Hemoglobin Concent 33.4 G/DL (32.0-36.0) Red Cell Distribution Width 11.5 % (11.6-14.8) L Platelet Count 212 K/UL (150-450) Mean Platelet Volume 7.4 FL (6.5-10.1) Neutrophils (%) (Auto) 72.5 % (45.0-75.0) Lymphocytes (%) (Auto) 17.2 % (20.0-45.0) L Monocytes (%) (Auto) 7.3 % (1.0-10.0) Eosinophils (%) (Auto) 2.4 % (0.0-3.0) Basophils (%) (Auto) 0.6 % (0.0-2.0) Sodium Level 144 MMOL/L (136-145) Potassium Level 3.2 MMOL/L (3.5-5.1) L Chloride Level 103 MMOL/L (98-107) Carbon Dioxide Level 32 MMOL/L (21-32) Anion Gap 10 mmol/L (5-15) Blood Urea Nitrogen 12 mg/dL (7-18) Creatinine 0.9 MG/DL (0.55-1.30) Estimat Glomerular Filtration Rate mL/min (>60) Glucose Level 120 MG/DL (74-106) H Calcium Level 8.9 MG/DL (8.5-10.1) Magnesium Level 2.0 MG/DL (1.8-2.4) Current Medications Medications (Trade) Dose Ordered Sig/Ghazal Route PRN Reason Start Time Stop Time Status Last Admin Dose Admin Acetaminophen (Tylenol) 650 mg Q4H PRN ORAL Mild Pain (Pain Scale 1-3) 07/07/18 18:00 08/06/18 17:59 Amlodipine Besylate (Norvasc) 5 mg QHS ORAL 07/08/18 21:00 08/07/18 20:59 07/08/18 20:27 Clonidine HCl (Catapres TTS-1) 1 patch QWEEK TDERMAL 07/09/18 16:00 08/08/18 15:59 Clotrimazole (Lotrimin) 1 applic THREE TIMES A DAY TOPIC 07/09/18 18:00 08/08/18 17:59 Dextrose (Dextrose 50%) 25 ml Q30M PRN IV Hypoglycemia 07/07/18 18:00 08/06/18 17:59 Dextrose (Dextrose 50%) 50 ml Q30M PRN IV Hypoglycemia 07/07/18 18:00 08/06/18 17:59 Duloxetine HCl (Cymbalta) 20 mg DAILY ORAL 07/09/18 09:00 08/08/18 08:59 07/09/18 14:39 Enoxaparin Sodium (Lovenox) 40 mg QHS SUBQ 07/07/18 21:00 08/06/18 20:59 07/08/18 20:42 Furosemide (Lasix) 10 mg EVERY 12 HOURS IV 07/07/18 21:00 08/06/18 20:59 07/09/18 09:49 Insulin Aspart (NovoLOG) BEFORE MEALS AND HS SUBQ 07/07/18 21:00 08/06/18 20:59 07/09/18 06:36 Potassium Chloride (K-Dur) 20 meq TWICE A DAY ORAL 07/08/18 19:30 08/07/18 19:29 07/08/18 20:27 Height (Feet): 5 Height (Inches): 7.00 Weight (Pounds): 300 General Appearance: no apparent distress, alert, non-toxic Head: normocephalic, atraumatic Eyes: bilateral anicteric ENT: normal voice Neck: full range of motion, no mass Respiratory: lungs clear, decreased breath sounds Cardiovascular: regular rate, rhythm Gastrointestinal: normal bowel sounds, non tender, soft, no mass, no organomegaly, non-distended Musculoskeletal: no calf tenderness Edema: mild edema Hudson Metzger MD Jul 09, 2018 15:28
--- NOTE | 2018-07-09 15:49 | Diagnostic Imaging Report ---
Indication: Chest pain Comparison: None A single view chest radiograph was obtained. Findings: No definite infiltrate or pulmonary vascular congestion identified although pulmonary vascularity is mildly prominent. The heart is enlarged. The aorta is mildly enlarged consistent with atherosclerotic vascular disease. The bones are osteopenic. Impression: No acute disease
[2018-07-09 17:23] LABS: ANION GAP 7 mmol/L (5-15); BLOOD UREA NITROGEN 14 mg/dL (7-18); CALCIUM 8.6 MG/DL (8.5-10.1); CARBON DIOXIDE 33 MMOL/L (21-32); CHLORIDE 105 MMOL/L (98-107); CREATINE KINASE 599 U/L (26-308); CREATININE 0.9 MG/DL (0.55-1.30); POTASSIUM 3.3 MMOL/L (3.5-5.1); SODIUM 145 MMOL/L (136-145)
--- NOTE | 2018-07-09 19:30 | NUR ---
NURSE NOTES: Received patient awake, no s/s of any distress, denies any pain. IV line patent and intact, Bed in low position and locked, call light within reach, will continue to monitor.
[2018-07-09] MEDS: Enoxaparin 40mg Inj SUBQ SCH (21:28)
[2018-07-10] VITALS: BP 137/79
--- NOTE | 2018-07-10 | NUR ---
NURSE NOTES: patient refused CPAP.
[2018-07-10 04:00] VITALS: BP 140/71
[2018-07-10] MEDS: NovoLOG Insulin Flexpen SUBQ SCH ×2 (05:41→11:30)
--- NOTE | 2018-07-10 07:12 | NUR ---
HAND-OFF: Report given to Nico HARTMAN.
--- NOTE | 2018-07-10 07:30 | NUR ---
NURSE NOTES: Received patient in bed,awake and alert and oriented x4 but forgetful. Not in acute respiratory distress. Denies any pain or discomfort. Patient is with external incontinent device.IV intact, no s/s of infiltration. Bed is in lowest position and locked. Bed alarm is on and side rails up. Will continue to monitor.
[2018-07-10 08:00] VITALS: BP 135/79
--- NOTE | 2018-07-10 09:00 | NUR ---
NURSE NOTES: Patient unable to do standing orthostatic @ this time. Will follow up.
--- NOTE | 2018-07-10 11:38 | Geriatric Progress Note ---
Assessment/Plan Problems: (1) Gait instability (2) Impaired gait and mobility (3) Peripheral neuropathy (4) Uncontrolled hypertension (5) Morbid obesity (6) Leg edema (7) Apnea (8) Excessive daytime sleepiness (9) Candidal intertrigo Assessment/Plan BP responding to present regimen. Continue current tx. C/o pain, anxiety decreased on Cymbalta. Reluctance to comply remains but patient states she will allow CPAP. Will convert Lasix to p.o. Continue to mobilize. Bowel tx. Await d/c planning. Discussed with: patient, hospital staff Subjective Interval Events Patient reports feeling better. No overt c/o pain. Yesterday did not attempt ambulation with P.T. Also last p.m. did not use CPAP, but after discussion states she will tonight. Affect appears improved. Does c/o constipation. Otherwise no new issues. Bp improved. Labs with resolution of leukocytosis, further decline of CPK. KCl 3.3. Constitutional: Denies: chills, fever Respiratory: Denies: shortness of breath Cardiovascular: Denies: chest pain, palpitations Gastrointestinal/Abdominal: Reports: constipation Genitourinary: Denies: dysuria Musculoskeletal: Denies: back pain Sleep: Reports: doesn't sleep well Geriatric Geriatric Last 24 Hour Vital Signs Date Time Temp Pulse Resp B/P (MAP) Pulse Ox O2 Delivery O2 Flow Rate FiO2 07/10/18 09:00 Room Air 07/10/18 09:00 85 84 07/10/18 08:00 98.4 82 18 135/79 (97) 94 07/10/18 04:00 98.9 87 18 140/71 (94) 94 07/10/18 00:00 98.9 93 18 137/79 (98) 93 07/09/18 23:48 80 20 Room Air 21 07/09/18 21:27 90 139/82 07/09/18 21:00 90 94 07/09/18 21:00 Room Air 07/09/18 20:00 98.8 90 17 139/82 (101) 92 07/09/18 16:27 143/77 07/09/18 16:00 97.6 79 19 143/77 (99) 95 07/09/18 12:49 98.8 81 19 151/94 (113) 97 07/09/18 12:00 98.8 81 19 151/94 (113) 97 07/09/18 11:30 81 83 Intake and Output 07/09/18 07/10/18 19:00 07:00 Intake Total 400 ml 360 ml Output Total 1000 ml Balance -600 ml 360 ml Intake Oral 400 ml 360 ml Output Urine Total 1000 ml Laboratory Tests Test 07/09/18 15:30 Sodium Level 145 MMOL/L (136-145) Potassium Level 3.3 MMOL/L (3.5-5.1) L Chloride Level 105 MMOL/L (98-107) Carbon Dioxide Level 33 MMOL/L (21-32) H Anion Gap 7 mmol/L (5-15) Blood Urea Nitrogen 14 mg/dL (7-18) Creatinine 0.9 MG/DL (0.55-1.30) Estimat Glomerular Filtration Rate mL/min (>60) Glucose Level 124 MG/DL (74-106) H Calcium Level 8.6 MG/DL (8.5-10.1) Total Creatine Kinase 599 U/L (26-308) H Current Medications Medications (Trade) Dose Ordered Sig/Ghazal Route PRN Reason Start Time Stop Time Status Last Admin Dose Admin Acetaminophen (Tylenol) 650 mg Q4H PRN ORAL Mild Pain (Pain Scale 1-3) 07/07/18 18:00 08/06/18 17:59 Amlodipine Besylate (Norvasc) 5 mg QHS ORAL 07/08/18 21:00 08/07/18 20:59 07/09/18 21:27 Clonidine HCl (Catapres TTS-1) 1 patch QWEEK TDERMAL 07/09/18 16:00 08/08/18 15:59 07/09/18 16:27 Clotrimazole (Lotrimin) 1 applic THREE TIMES A DAY TOPIC 07/09/18 18:00 08/08/18 17:59 07/10/18 08:02 Dextrose (Dextrose 50%) 25 ml Q30M PRN IV Hypoglycemia 07/07/18 18:00 08/06/18 17:59 Dextrose (Dextrose 50%) 50 ml Q30M PRN IV Hypoglycemia 07/07/18 18:00 08/06/18 17:59 Duloxetine HCl (Cymbalta) 20 mg DAILY ORAL 07/09/18 09:00 08/08/18 08:59 07/10/18 08:02 Enoxaparin Sodium (Lovenox) 40 mg QHS SUBQ 07/07/18 21:00 08/06/18 20:59 07/09/18 21:28 Furosemide (Lasix) 10 mg EVERY 12 HOURS IV 07/07/18 21:00 08/06/18 20:59 07/10/18 08:02 Insulin Aspart (NovoLOG) BEFORE MEALS AND HS SUBQ 07/07/18 21:00 08/06/18 20:59 07/10/18 05:41 Potassium Chloride (K-Dur) 20 meq TWICE A DAY ORAL 07/08/18 19:30 08/07/18 19:29 07/10/18 08:02 Height (Feet): 5 Height (Inches): 7.00 Weight (Pounds): 300 General Appearance: no apparent distress, alert, non-toxic Head: normocephalic, atraumatic Eyes: bilateral anicteric ENT: normal voice Neck: full range of motion, no mass Respiratory: lungs clear, decreased breath sounds Cardiovascular: regular rate, rhythm Gastrointestinal: normal bowel sounds, non tender, soft, no mass, no organomegaly Musculoskeletal: no calf tenderness Edema: mild edema Neurologic: no new focality, other - BLE only able to raise legs few inches above bed. Hudson Metzger MD Jul 10, 2018 11:38
[2018-07-10] MEDS ORDERED: Milk of Magnesia 30ml Ud ORAL PRN (11:45)
[2018-07-10 12:00] VITALS: BP_SYST 13; BP_SYST 137; BP_DIAS 79
--- NOTE | 2018-07-10 12:05 | Pulmonology Progress Note ---
Assessment/Plan Problems: (1) Apnea (2) Excessive daytime sleepiness (3) Snoring (4) Morbid obesity (5) Leg edema Assessment/Plan Given the patients stated history, body habitus and exam I suspect she has underlying DANNY/OHV. She will need a formal sleep study (PSG) with CPAP/BiPAP titration as an outpatient. For the time being swe can attempt CPAP if the patient is willing. -Trial of CPAP 12 cm H2O - STATES SHE WILL TRY THIS EVENING -TTE reviewed, normal PASP -Outpatient PSG with CPAP/BiPAP titration -Weight loss/diet/exercise -Monitor volumes and renal function -DVT Px: LMWH Subjective Allergies: Coded Allergies: FISH CONTAINING PRODUCTS (Verified Allergy, Unknown, 07/08/18) per patient SHELLFISH DERIVED (Verified Allergy, Unknown, 07/08/18) per patient Subjective AFVSS stable on RA Refused CPAP Denies SOB, cough, CP, wheezing + snoring Objective Last 24 Hour Vital Signs Date Time Temp Pulse Resp B/P (MAP) Pulse Ox O2 Delivery O2 Flow Rate FiO2 07/10/18 09:00 Room Air 07/10/18 09:00 85 84 07/10/18 08:00 98.4 82 18 135/79 (97) 94 07/10/18 04:00 98.9 87 18 140/71 (94) 94 07/10/18 00:00 98.9 93 18 137/79 (98) 93 07/09/18 23:48 80 20 Room Air 21 07/09/18 21:27 90 139/82 07/09/18 21:00 90 94 07/09/18 21:00 Room Air 07/09/18 20:00 98.8 90 17 139/82 (101) 92 07/09/18 16:27 143/77 07/09/18 16:00 97.6 79 19 143/77 (99) 95 07/09/18 12:49 98.8 81 19 151/94 (113) 97 Intake and Output 07/09/18 07/10/18 19:00 07:00 Intake Total 400 ml 360 ml Output Total 1000 ml Balance -600 ml 360 ml Intake Oral 400 ml 360 ml Output Urine Total 1000 ml General Appearance: no acute distress, other - obese female HEENT: normocephalic, atraumatic, anicteric, mucous membranes moist Respiratory/Chest: chest wall non-tender, lungs clear, normal breath sounds, no respiratory distress, no accessory muscle use Cardiovascular: normal peripheral pulses, normal rate, regular rhythm Abdomen: normal bowel sounds, soft, non tender, no organomegaly, non distended , no mass Extremities: no cyanosis, no clubbing, no edema Microbiology Date/Time Source Procedure Growth Status 07/07/18 15:15 Blood Blood Culture - Preliminary NO GROWTH AFTER 48 HOURS Resulted 07/07/18 15:00 Blood Blood Culture - Preliminary NO GROWTH AFTER 48 HOURS Resulted 07/07/18 16:15 Urine,Clean Catch Urine Culture - Final Mixed Gram Positive Organism Complete Laboratory Tests 07/09/18 15:30: Sodium Level 145, Potassium Level 3.3L, Chloride Level 105, Carbon Dioxide Level 33H, Anion Gap 7, Blood Urea Nitrogen 14, Creatinine 0.9, Estimat Glomerular Filtration Rate , Glucose Level 124H, Calcium Level 8.6, Total Creatine Kinase 599H Current Medications Medications (Trade) Dose Ordered Sig/Ghazal Route PRN Reason Start Time Stop Time Status Last Admin Dose Admin Acetaminophen (Tylenol) 650 mg Q4H PRN ORAL Mild Pain (Pain Scale 1-3) 07/07/18 18:00 08/06/18 17:59 Amlodipine Besylate (Norvasc) 5 mg QHS ORAL 07/08/18 21:00 08/07/18 20:59 07/09/18 21:27 Bisacodyl (Dulcolax) 10 mg DAILYPRN PRN RECTAL Constipation 07/10/18 12:00 08/09/18 11:44 Clonidine HCl (Catapres TTS-1) 1 patch QWEEK TDERMAL 07/09/18 16:00 08/08/18 15:59 07/09/18 16:27 Clotrimazole (Lotrimin) 1 applic THREE TIMES A DAY TOPIC 07/09/18 18:00 08/08/18 17:59 07/10/18 08:02 Dextrose (Dextrose 50%) 25 ml Q30M PRN IV Hypoglycemia 07/07/18 18:00 08/06/18 17:59 Dextrose (Dextrose 50%) 50 ml Q30M PRN IV Hypoglycemia 07/07/18 18:00 08/06/18 17:59 Duloxetine HCl (Cymbalta) 20 mg DAILY ORAL 07/09/18 09:00 08/08/18 08:59 07/10/18 08:02 Enoxaparin Sodium (Lovenox) 40 mg QHS SUBQ 07/07/18 21:00 08/06/18 20:59 07/09/18 21:28 Furosemide (Lasix) 20 mg DAILY ORAL 07/11/18 09:00 08/10/18 08:59 Magnesium Hydroxide (Mom) 30 ml DAILYPRN PRN ORAL Constipation 07/10/18 11:45 08/09/18 11:44 Polyethylene Glycol (Miralax) 17 gm BEDTIME ORAL 07/10/18 21:00 08/09/18 20:59 Potassium Chloride (K-Dur) 20 meq TWICE A DAY ORAL 07/08/18 19:30 08/07/18 19:29 07/10/18 08:02 Suman Mcdonnell MD Jul 10, 2018 12:05
--- NOTE | 2018-07-10 12:10 | NUR ---
NURSE NOTES: Able to do orthostatic vital sign with the help of PT and MD Metzger aware of the results with no new order.
[2018-07-10 16:00] VITALS: BP 147/83
--- NOTE | 2018-07-10 19:11 | NUR ---
HAND-OFF: Report given to Lobito.
--- NOTE | 2018-07-10 19:12 | NUR ---
NURSE NOTES: Received patient on bed awake, no s/s of any distress, denies any pain. IV line patent and intact. Bed in low position and locked, call light within reach, will continue to monitor.
--- NOTE | 2018-07-10 19:12 | NUR ---
NURSE NOTES: RN endorsed to the next shift to encourage patient to use CPAP. Patient agreed to use it.Proper incontinent care provided.
[2018-07-10 20:00] VITALS: BP 139/85
[2018-07-10] MEDS: Miralax 17gm pkt ORAL SCH (20:54)
[2018-07-10] MEDS: Enoxaparin 40mg Inj SUBQ SCH (20:55)
[2018-07-11] VITALS: BP 147/98
[2018-07-11 04:00] VITALS: BP 154/89
--- NOTE | 2018-07-11 07:47 | NUR ---
HAND-OFF: Report given to Terrell HARTMAN.
--- NOTE | 2018-07-11 07:49 | NUR ---
NURSE NOTES: Received report from DEVAN Alvares. Pt in bed, awake, eating breakfast, talkative. No complaints of pain, no distress noted, Discussed use of CPAP and need for room change to use CPAP. Stated I would discuss room change with laborer vegetable farmDEVAN Umana so pt could use CPAP tonight and pt stated "no, dont talk to Lyndsay, just let the doctor know and say what he has to say because I don't want to use it anyway. They have run the test and nothing said I have sleep apnea." Will follow up with Dr. Mcdonnell. bed in lowest position, call light within reach.
[2018-07-11 08:00] VITALS: BP 124/77
[2018-07-11 12:00] VITALS: BP 141/80
--- NOTE | 2018-07-11 13:34 | Pulmonology Progress Note ---
Assessment/Plan Problems: (1) Apnea (2) Excessive daytime sleepiness (3) Snoring (4) Morbid obesity (5) Leg edema Assessment/Plan Given the patients stated history, body habitus and exam I suspect she has underlying DANNY/OHV. She will need a formal sleep study (PSG) with CPAP/BiPAP titration as an outpatient. We attempted an empiric trial of CPAP but she declined 3 nights in a row -Consdier empiria trial of CPAP 12 cm H2O if patient is willing - she declined 3 nights in a row -TTE reviewed, normal PASP -Outpatient PSG with CPAP/BiPAP titration if patient willing -Weight loss/diet/exercise -Monitor volumes and renal function -DVT Px: LMWH -I will follow peripherally as there are no active sleep issues. She can f/u with me as an outpatient or I can assist you in setting up a formal sleep study if she is willing. This will be tricky from a SNF but can be done. Subjective Allergies: Coded Allergies: FISH CONTAINING PRODUCTS (Verified Allergy, Unknown, 07/08/18) per patient SHELLFISH DERIVED (Verified Allergy, Unknown, 07/08/18) per patient Subjective AFVSS stable on RA Refused CPAP again Denies SOB, cough, CP, wheezing + snoring Objective Last 24 Hour Vital Signs Date Time Temp Pulse Resp B/P (MAP) Pulse Ox O2 Delivery O2 Flow Rate FiO2 07/11/18 12:00 98.2 87 18 141/80 (100) 92 07/11/18 09:00 77 87 95 07/11/18 09:00 Room Air 07/11/18 08:15 85 14 Room Air 21 07/11/18 08:00 98.1 84 20 124/77 (93) 95 07/11/18 04:00 98.5 89 20 154/89 (110) 97 07/11/18 00:00 98.0 80 18 147/98 (114) 96 07/10/18 21:00 Room Air 07/10/18 21:00 90 95 07/10/18 20:54 90 139/85 07/10/18 20:21 82 20 Room Air 21 07/10/18 20:00 98.6 90 20 139/85 (103) 97 07/10/18 16:00 98.0 88 18 147/83 (104) 98 07/10/18 14:17 77 16 Room Air 21 Intake and Output 07/10/18 07/11/18 19:00 07:00 Intake Total 720 ml 500 ml Output Total 700 ml Balance 720 ml -200 ml Intake Oral 720 ml 500 ml Output Urine Total 700 ml # Voids 2 4 # Bowel Movements 1 General Appearance: no acute distress, other - obese HEENT: normocephalic, atraumatic, anicteric, mucous membranes moist, other - MP 4 Respiratory/Chest: chest wall non-tender, lungs clear, normal breath sounds, no respiratory distress, no accessory muscle use Cardiovascular: normal peripheral pulses, normal rate, regular rhythm Abdomen: normal bowel sounds, soft, non tender, no organomegaly, non distended , no mass Extremities: no cyanosis, no clubbing, other - chronic lymphedema Current Medications Medications (Trade) Dose Ordered Sig/Ghazal Route PRN Reason Start Time Stop Time Status Last Admin Dose Admin Acetaminophen (Tylenol) 650 mg Q4H PRN ORAL Mild Pain (Pain Scale 1-3) 07/07/18 18:00 08/06/18 17:59 Amlodipine Besylate (Norvasc) 5 mg QHS ORAL 07/08/18 21:00 08/07/18 20:59 07/10/18 20:54 Bisacodyl (Dulcolax) 10 mg DAILYPRN PRN RECTAL Constipation 07/10/18 12:00 08/09/18 11:44 Clonidine HCl (Catapres TTS-1) 1 patch QWEEK TDERMAL 07/09/18 16:00 08/08/18 15:59 07/09/18 16:27 Clotrimazole (Lotrimin) 1 applic THREE TIMES A DAY TOPIC 07/09/18 18:00 08/08/18 17:59 07/11/18 12:50 Dextrose (Dextrose 50%) 25 ml Q30M PRN IV Hypoglycemia 07/07/18 18:00 08/06/18 17:59 Dextrose (Dextrose 50%) 50 ml Q30M PRN IV Hypoglycemia 07/07/18 18:00 08/06/18 17:59 Duloxetine HCl (Cymbalta) 20 mg DAILY ORAL 07/09/18 09:00 08/08/18 08:59 07/11/18 09:44 Enoxaparin Sodium (Lovenox) 40 mg QHS SUBQ 07/07/18 21:00 2/2/19 20:59 07/10/18 20:55 Furosemide (Lasix) 20 mg DAILY ORAL 07/11/18 09:00 08/10/18 08:59 07/11/18 09:44 Magnesium Hydroxide (Mom) 30 ml DAILYPRN PRN ORAL Constipation 07/10/18 11:45 08/09/18 11:44 07/10/18 17:56 Polyethylene Glycol (Miralax) 17 gm BEDTIME ORAL 07/10/18 21:00 08/09/18 20:59 07/10/18 20:54 Potassium Chloride (K-Dur) 20 meq TWICE A DAY ORAL 07/08/18 19:30 08/07/18 19:29 07/11/18 09:44 Suman Mcdonnell MD Jul 11, 2018 13:34
--- NOTE | 2018-07-11 14:37 | NUR ---
RD ASSESSMENT & RECOMMENDATIONS SEE CARE ACTIVITY FOR COMPLETE ASSESSMENT DAILY ESTIMATED NEEDS: Needs based on morbid obesity, cardiac/ 76kg abw 20-22 kcals/kg 3268-9863 total kcals 1-1.5 g protein/kg 76-114 g total protein 20-22 ml fluid/kg 1520-1672ml NUTRITION DIAGNOSIS: Morbid obesity R/T excessive energy intake? sedentary life style as evidenced by BMI=50.4, pt @ 242% IBW. RD consult for wt loss. Pt reports wt has been around 300lbs for awhile, sometimes higher and sometimes lower when dieting. Per pt, has been on all kinds of diets, but "nothing works" States she doesn't eat much, not a big eater but can't seem to lose weight. Pt reports has been sedentary as pt hasn't able to use her walker well as it needs to be fixed, but tries to move arms and legs around in bed as an exercise. Education reviewed includes what calories are and what it means in weight management, ways to cut down calories when cooking and eating, ways to feel satiated longer when eating, healthier food options/alternatives, how to prevent overeating, portion control, etc. Handout provided as well. Pt verbalized understanding but frequent response to RD education is, "I know, but it doesn't work" or "I've tried it, but doesn't work." Pt appears to be in denial of her possible excessive energy intake and verbalizes that "I don't eat much" It appears pt will benefit from outpatient wt loss program that will provide encouragement and reinforcement. A1C=5.8 noted- Will benefit from carb controlled diet for glycemic control as well as kcal control. CURRENT DIET:CCHO MED, NO ADDED SALT PO DIET RECOMMENDATIONS: CCHO LOW, CARDIAC ADDITIONAL RECOMMENDATIONS: * Standing wt or Calibrated bedscale wt for accurate CBW * Weekly wt monitoring to assess wt trend * Diet education on weight loss provided on 07/11/18. * Recommend outpatient weight loss program once discharged * Monitor lytes daily w/ lasix, replete as needed
[2018-07-11 16:00] VITALS: BP 142/82
--- NOTE | 2018-07-11 16:36 | NUR ---
CASE MANAGEMENT:REVIEW 07/11/18 SI: CELLULITIS AND EDEMA 98.1 79 20 142/82 99% ON RA IS: LASIX PO QD CLONIDINE QWEEK NORVASC PO QHS K-DUR PO BID LOVENOX SQ QHS : MED/SURG STATUS
--- NOTE | 2018-07-11 16:43 | NUR ---
DISCHARGE PLANNING DELICATESSEN GOODS STOCK CLERK JUST NOTED DISCHARGE PLANNING ORDER FOR TODAY CALLED AND SPOKE WITH CONSTRUCTION WORKER NADINE AT [facility]. UNFORTUNATELY ACCEPTANCE CANNOT BE APPROVED UNTIL TOMORROW FAXED CLINICALS TO [facility] T: [phone] F: [phone] FOLLOW UP IN AM Addendum: 07/11/18 at 1649 by SCOT CHAVIS LVN LVN NEED PROOF OF FLU VACCINE BEFOR THEY WILL ACCEPT Addendum: 07/12/18 at 1627 by SUSAN ESPINOZA RN RN RECEIVED CONFIRMATION ON CPAP. CPAP NOT NEEDED FOR DISCHARGED. LEFT A MESSAGE FOR NADINE FOR ROOM ASSIGNMENT.WAITING FOR CALL BACK.
--- NOTE | 2018-07-11 17:32 | Geriatric Progress Note ---
Assessment/Plan Problems: (1) Gait instability (2) Impaired gait and mobility (3) Peripheral neuropathy (4) Uncontrolled hypertension (5) Morbid obesity (6) Leg edema (7) Apnea (8) Excessive daytime sleepiness (9) Candidal intertrigo Assessment/Plan Stabilizing. Discussed status with patient. Agreed to have flu vaccine to allow transfer. Continue Cymbalta, consider increasing dose gradually. Bp control improved, continue current approach. GLP-1 after transfer. Await d/c planning. Recheck labs. Discussed with: patient, hospital staff Subjective Interval Events Patient cheerful. Admits that her legs feel better. Did not have CPAP trial because of electrical safety issue in present room. Discharge planning has not arranged bed as yet. Will need flu vaccine in order to be eligible for SNF admit. Tolerating other treatment. Bp slowly improving on TTS-1. Consider increase dose in future. No GLP-1 available in hospital. Will postpone until transferred to SNF. Ambulated 30' with P.T. Constitutional: Denies: chills, fever Respiratory: Denies: cough, shortness of breath Cardiovascular: Denies: chest pain, palpitations Gastrointestinal/Abdominal: Denies: abdominal pain Genitourinary: Denies: dysuria Geriatric Geriatric Last 24 Hour Vital Signs Date Time Temp Pulse Resp B/P (MAP) Pulse Ox O2 Delivery O2 Flow Rate FiO2 07/11/18 16:00 98.1 79 20 142/82 (102) 99 07/11/18 12:00 98.2 87 18 141/80 (100) 92 07/11/18 09:00 77 87 95 07/11/18 09:00 Room Air 07/11/18 08:15 85 14 Room Air 21 07/11/18 08:00 98.1 84 20 124/77 (93) 95 07/11/18 04:00 98.5 89 20 154/89 (110) 97 07/11/18 00:00 98.0 80 18 147/98 (114) 96 07/10/18 21:00 Room Air 07/10/18 21:00 90 95 07/10/18 20:54 90 139/85 07/10/18 20:21 82 20 Room Air 21 07/10/18 20:00 98.6 90 20 139/85 (103) 97 Intake and Output 07/10/18 07/11/18 19:00 07:00 Intake Total 720 ml 500 ml Output Total 700 ml Balance 720 ml -200 ml Intake Oral 720 ml 500 ml Output Urine Total 700 ml # Voids 2 4 # Bowel Movements 1 Current Medications Medications (Trade) Dose Ordered Sig/Ghazal Route PRN Reason Start Time Stop Time Status Last Admin Dose Admin Acetaminophen (Tylenol) 650 mg Q4H PRN ORAL Mild Pain (Pain Scale 1-3) 07/07/18 18:00 08/06/18 17:59 Amlodipine Besylate (Norvasc) 5 mg QHS ORAL 07/08/18 21:00 08/07/18 20:59 07/10/18 20:54 Bisacodyl (Dulcolax) 10 mg DAILYPRN PRN RECTAL Constipation 07/10/18 12:00 08/09/18 11:44 Clonidine HCl (Catapres TTS-1) 1 patch QWEEK TDERMAL 07/09/18 16:00 08/08/18 15:59 07/09/18 16:27 Clotrimazole (Lotrimin) 1 applic THREE TIMES A DAY TOPIC 07/09/18 18:00 08/08/18 17:59 07/11/18 17:08 Dextrose (Dextrose 50%) 25 ml Q30M PRN IV Hypoglycemia 07/07/18 18:00 08/06/18 17:59 Dextrose (Dextrose 50%) 50 ml Q30M PRN IV Hypoglycemia 07/07/18 18:00 08/06/18 17:59 Duloxetine HCl (Cymbalta) 20 mg DAILY ORAL 07/09/18 09:00 08/08/18 08:59 07/11/18 09:44 Enoxaparin Sodium (Lovenox) 40 mg QHS SUBQ 07/07/18 21:00 08/06/18 20:59 07/10/18 20:55 Furosemide (Lasix) 20 mg DAILY ORAL 07/11/18 09:00 08/10/18 08:59 07/11/18 09:44 Influenza Virus Vaccine Quadrival (Flu Vaccine for Pts Less than 65 Years old) 0.5 ml ONCE ONCE IM 07/11/18 17:30 07/11/18 17:31 UNV Magnesium Hydroxide (Mom) 30 ml DAILYPRN PRN ORAL Constipation 07/10/18 11:45 08/09/18 11:44 07/10/18 17:56 Polyethylene Glycol (Miralax) 17 gm BEDTIME ORAL 07/10/18 21:00 08/09/18 20:59 07/10/18 20:54 Potassium Chloride (K-Dur) 20 meq TWICE A DAY ORAL 07/08/18 19:30 08/07/18 19:29 07/11/18 17:08 Height (Feet): 5 Height (Inches): 7.00 Weight (Pounds): 300 General Appearance: no apparent distress, alert, non-toxic Head: normocephalic, atraumatic Eyes: bilateral anicteric ENT: normal voice Neck: full range of motion, no mass Respiratory: lungs clear, decreased breath sounds Cardiovascular: regular rate, rhythm Gastrointestinal: normal bowel sounds, non tender, soft, no mass, no organomegaly Musculoskeletal: no calf tenderness Edema: trace edema, other - chronic changes from dependent edema persist Neurologic: alert, oriented x3, responsive, no new focality, other - Decreased lower extremity strength as before. Hudson Metzger MD Jul 11, 2018 17:32
[2018-07-11] MEDS ORDERED: Flu Vaccine (Alfuria) for Pts Less than 65 Years old IM ONE (18:30)
[2018-07-11] MEDS ORDERED: Flu Vaccine High-Dose for Pts 65 Years and Older IM ONE (18:30)
--- NOTE | 2018-07-11 19:15 | NUR ---
HAND-OFF: Report given to DEVAN Moran.
--- NOTE | 2018-07-11 19:30 | NUR ---
NURSE NOTES: Received report from Dilcia HARTMAN. PT is AO x4 and watching tv. No acute distress noted. Bed is locked in the lowest position. Call light is within reach. Will continue to follow the plan of care.
[2018-07-11 20:00] VITALS: BP 147/88
[2018-07-11] MEDS: Miralax 17gm pkt ORAL SCH (20:59)
[2018-07-11] MEDS: Enoxaparin 40mg Inj SUBQ SCH (20:59)
[2018-07-12] VITALS: BP 138/88
--- NOTE | 2018-07-12 | NUR ---
NURSE NOTES: Patient is refusing to have the cpap after changing the room. NO reason given.
[2018-07-12 04:00] VITALS: BP 135/72
--- NOTE | 2018-07-12 07:27 | NUR ---
NURSE NOTES: Report Received from DEVAN Moran. Pt sitting at bedside, awake, eating breakfast A/O x4, no apparent distress noted. Bed in lowest position, call light within reach
--- NOTE | 2018-07-12 07:28 | NUR ---
HAND-OFF: Report given to Dilcia HARTMAN.
[2018-07-12 08:00] VITALS: BP 126/77
--- NOTE | 2018-07-12 08:52 | Cardiology Report ---
APPROVED REPORT EXAM: Two-dimensional and M-mode echocardiogram with Doppler and color Doppler. INDICATION HYPERTENSION M-Mode DIMENSIONS IVSd1.5 (0.7-1.1cm)Left Atrium (MM)2.6 (1.6-4.0cm) LVDd3.6 (3.5-5.6cm)Aortic Root3.2 (2.0-3.7cm) PWd1.5 (0.7-1.1cm)Aortic Cusp Exc.1.6 (1.5-2.0cm) IVSs1.8 cm LVDs2.5 (2.5-4.0cm) PWs1.5 cm Normal left ventricular chamber size, systolic function and wall motion. Left ventricular ejection fraction estimated to be 60%. No evidence of left ventricular hypertrophy. No evidence of pericardial effusion. All other cardiac chamber sizes are within normal limits. Aortic valve sclerosis with adequate cusp excursion. Mildly thickened mitral valve leaflets with normal excursion. Mitral annulus and aortic root calcification. Pulmonic valve not well visualized. IVC dilated at size 2.7 cm with slightly physiologic collapse suggestive of increased RA pressure. A color flow and spectral Doppler study was performed and revealed: No aortic regurgitation. Mitral diastolic velocities suggest reduced left ventricular relaxation c/w mild LV diastolic dysfunction (Grade I ) Trace mitral regurgitation. Trace tricuspid regurgitation. Tricuspid systolic velocities suggests peak right ventricular systolic pressure of 18mmHg.
[2018-07-12 09:47] LABS: BASOPHILS % (AUTO) 0.7 % (0.0-2.0); EOSINOPHILS % (AUTO) 1.9 % (0.0-3.0); HEMATOCRIT 41.5 % (37.0-47.0); HEMOGLOBIN 14.2 G/DL (12.0-16.0); LYMPHOCYTES % (AUTO) 15.4 % (20.0-45.0); MEAN CORPUSCULAR VOLUME 91 FL (80-99); MONOCYTES % (AUTO) 7.8 % (1.0-10.0); NEUTROPHILS % (AUTO) 74.1 % (45.0-75.0); PLATELET COUNT 217 K/UL (150-450); RED BLOOD COUNT 4.58 M/UL (4.20-5.40); RED CELL DISTRIBUTION WIDTH 11.7 % (11.6-14.8); WHITE BLOOD COUNT 8.2 K/UL (4.8-10.8)
[2018-07-12 10:06] LABS: ANION GAP 7 mmol/L (5-15); BLOOD UREA NITROGEN 16 mg/dL (7-18); CALCIUM 9.2 MG/DL (8.5-10.1); CARBON DIOXIDE 30 MMOL/L (21-32); CHLORIDE 104 MMOL/L (98-107); SODIUM 141 MMOL/L (136-145)
[2018-07-12 11:49] VITALS: BP 130/92
[2018-07-12 16:00] VITALS: BP_SYST 126; BP_SYST 139; BP_DIAS 77; BP_DIAS 91
--- NOTE | 2018-07-12 16:05 | NUR ---
NURSE NOTES: Person from Dr. Metzger's office called, stated Dr. Metzger wants pt to be discharge paperwork ready in 1 hour and he will be here to see pt. I asked if he would be entering the order and doing the medication reconciliation, they stated he would.
--- NOTE | 2018-07-12 16:21 | NUR ---
TERMINAL SUPERVISOR NOTES SPOKE WITH NADINE FROM [facility]. PT ACCEPTED BARIATRIC BED ORDERED WILL BE DELIVERED TO FACILITY THIS EVENING. PROOF OF FLU GIVEN. NEED CLARITY OF CPAP ORDER AND SETTINGS. Addendum: 07/13/18 at 1319 by CORNELL JONES SKILLED
--- NOTE | 2018-07-12 16:28 | NUR ---
NURSE NOTES: Called Dr. Metzger's office, still no order or medication reconciliation done.
--- NOTE | 2018-07-12 16:58 | NUR ---
NURSE NOTES: Report called to [facility], spoke with DEVAN Alcantar.
[2018-07-12] MEDS ORDERED: CYMBALTA30 MG ORAL (17:56)
[2018-07-12] MEDS ORDERED: POTASSIUM CHLO20 ME1 ORAL (17:56)
[2018-07-12] MEDS ORDERED: AMLODIPINE BESY10 MG ORAL (17:56)
[2018-07-12] MEDS ORDERED: LOVENOX10 M4 SUBQ (17:56)
[2018-07-12] MEDS ORDERED: FUROSEMIDE20 M1 ORAL (17:56)
[2018-07-12] MEDS ORDERED: CLOTRIMAZOLE15 GM TOPIC (17:56)
[2018-07-12] MEDS ORDERED: MOM30 ML ORAL (17:56)
[2018-07-12] MEDS ORDERED: ACETAMINOPHEN325 M1 ORAL (17:56)
[2018-07-12] MEDS ORDERED: CATAPRES TTS-1 PATCH TDERMAL (17:56)
[2018-07-12] MEDS ORDERED: TRULICITY0.75 MG/0. SQ (17:59)
--- NOTE | 2018-07-12 18:17 | Geriatric Progress Note ---
Assessment/Plan Problems: (1) Gait instability (2) Impaired gait and mobility (3) Peripheral neuropathy (4) Uncontrolled hypertension (5) Morbid obesity (6) Leg edema (7) Apnea (8) Excessive daytime sleepiness (9) Candidal intertrigo (10) Glucose intolerance Assessment/Plan Diminished exuberance may represent anxiety with loss of control. Catapres could have some effect, but given response to therapy would monitor on current dose. Will increase Cymbalta to 30mg to improve control on neuropathic sxs, and possible antidepressant effect. Add GLP-1 for glucose control and weight loss. OK for d/c. Dictated #[id number] Discussed with: patient, hospital staff Subjective Interval Events Patient very controlling. Did not use CPAP due to number of reported logistical issues. Reports she does not feel as happy as usual. Otherwise is primarily concerned about d/c details, how long she will have to take medications, etc. No new clinical issues. Bed now available at [facility]. Constitutional: Denies: chills, fever Respiratory: Denies: cough, orthopnea, shortness of breath Cardiovascular: Denies: chest pain, palpitations Gastrointestinal/Abdominal: Denies: abdominal pain Geriatric Geriatric Last 24 Hour Vital Signs Date Time Temp Pulse Resp B/P (MAP) Pulse Ox O2 Delivery O2 Flow Rate FiO2 07/12/18 16:00 97.9 78 18 139/91 (107) 95 07/12/18 11:49 98.0 79 20 130/92 (105) 97 07/12/18 10:18 86 16 Room Air 21 07/12/18 09:00 83 88 108 07/12/18 08:30 Room Air 07/12/18 08:00 97.3 81 17 126/77 (93) 93 84 07/12/18 04:00 98.2 82 20 135/72 (93) 97 84 07/12/18 00:00 97.3 74 19 138/88 (105) 92 84 07/11/18 21:00 Room Air 07/11/18 20:56 84 147/88 07/11/18 20:00 80 20 Room Air 21 07/11/18 20:00 97.3 84 19 147/88 (107) 98 84 Intake and Output 07/11/18 07/12/18 19:00 07:00 Intake Total 1020 ml 240 ml Output Total 700 ml Balance 320 ml 240 ml Intake Oral 1020 ml 240 ml Output Urine Total 700 ml # Voids 3 # Bowel Movements 3 Laboratory Tests Test 07/12/18 09:15 White Blood Count 8.2 K/UL (4.8-10.8) Red Blood Count 4.58 M/UL (4.20-5.40) Hemoglobin 14.2 G/DL (12.0-16.0) Hematocrit 41.5 % (37.0-47.0) Mean Corpuscular Volume 91 FL (80-99) Mean Corpuscular Hemoglobin 30.9 PG (27.0-31.0) Mean Corpuscular Hemoglobin Concent 34.1 G/DL (32.0-36.0) Red Cell Distribution Width 11.7 % (11.6-14.8) Platelet Count 217 K/UL (150-450) Mean Platelet Volume 7.0 FL (6.5-10.1) Neutrophils (%) (Auto) 74.1 % (45.0-75.0) Lymphocytes (%) (Auto) 15.4 % (20.0-45.0) L Monocytes (%) (Auto) 7.8 % (1.0-10.0) Eosinophils (%) (Auto) 1.9 % (0.0-3.0) Basophils (%) (Auto) 0.7 % (0.0-2.0) Sodium Level 141 MMOL/L (136-145) Potassium Level 4.0 MMOL/L (3.5-5.1) Chloride Level 104 MMOL/L (98-107) Carbon Dioxide Level 30 MMOL/L (21-32) Anion Gap 7 mmol/L (5-15) Blood Urea Nitrogen 16 mg/dL (7-18) Creatinine 1.0 MG/DL (0.55-1.30) Estimat Glomerular Filtration Rate mL/min (>60) Glucose Level 123 MG/DL (74-106) H Calcium Level 9.2 MG/DL (8.5-10.1) Magnesium Level 2.1 MG/DL (1.8-2.4) Current Medications Medications (Trade) Dose Ordered Sig/Ghazal Route PRN Reason Start Time Stop Time Status Last Admin Dose Admin Acetaminophen (Tylenol) 650 mg Q4H PRN ORAL Mild Pain (Pain Scale 1-3) 07/07/18 18:00 08/06/18 17:59 Amlodipine Besylate (Norvasc) 5 mg QHS ORAL 07/08/18 21:00 08/07/18 20:59 07/11/18 20:56 Bisacodyl (Dulcolax) 10 mg DAILYPRN PRN RECTAL Constipation 07/10/18 12:00 08/09/18 11:44 Clonidine HCl (Catapres TTS-1) 1 patch QWEEK TDERMAL 07/09/18 16:00 08/08/18 15:59 07/09/18 16:27 Clotrimazole (Lotrimin) 1 applic THREE TIMES A DAY TOPIC 07/09/18 18:00 08/08/18 17:59 07/12/18 12:18 Dextrose (Dextrose 50%) 25 ml Q30M PRN IV Hypoglycemia 07/07/18 18:00 08/06/18 17:59 Dextrose (Dextrose 50%) 50 ml Q30M PRN IV Hypoglycemia 07/07/18 18:00 08/06/18 17:59 Duloxetine HCl (Cymbalta) 20 mg DAILY ORAL 07/09/18 09:00 08/08/18 08:59 07/12/18 09:00 Enoxaparin Sodium (Lovenox) 40 mg QHS SUBQ 07/07/18 21:00 08/06/18 20:59 07/11/18 20:59 Furosemide (Lasix) 20 mg DAILY ORAL 07/11/18 09:00 08/10/18 08:59 07/12/18 09:01 Magnesium Hydroxide (Mom) 30 ml DAILYPRN PRN ORAL Constipation 07/10/18 11:45 08/09/18 11:44 07/10/18 17:56 Polyethylene Glycol (Miralax) 17 gm BEDTIME ORAL 07/10/18 21:00 08/09/18 20:59 07/10/18 20:54 Potassium Chloride (K-Dur) 20 meq TWICE A DAY ORAL 07/08/18 19:30 08/07/18 19:29 07/12/18 17:05 Height (Feet): 5 Height (Inches): 7.00 Weight (Pounds): 300 General Appearance: no apparent distress, alert, non-toxic Eyes: bilateral anicteric ENT: normal voice Neck: full range of motion, no mass Respiratory: lungs clear, decreased breath sounds Cardiovascular: regular rate, rhythm Gastrointestinal: normal bowel sounds, non tender, soft, no mass, no organomegaly Musculoskeletal: no calf tenderness, other - chronic woody changes of distal LEs Neurologic: alert, oriented x3, no new focality Hudson Metzger MD Jul 12, 2018 18:17
--- NOTE | 2018-07-12 19:30 | NUR ---
NURSE NOTES: RECEIVED REPORT FROM JEOVANY HARTMAN. PATIENT IN STABLE CONDITION AWAITING DISCHARGE.
--- NOTE | 2018-07-12 19:58 | NUR ---
HAND-OFF: Report given to DEVAN Cody.
[2018-07-12] MEDS: Miralax 17gm pkt ORAL SCH (20:45)
[2018-07-12 20:47] VITALS: BP 138/75
[2018-07-12] MEDS: Enoxaparin 40mg Inj SUBQ SCH (20:48)
--- NOTE | 2018-07-12 21:45 | NUR ---
NURSE NOTES: patient discharged to re[facility] at 2145 [facility] [address] [facility]. Report given to Chepe Morneo and Lucina Gutiérrez. IV D/C, armband removed and belongings sent with patient.
--- NOTE | 2018-07-12 22:15 | Discharge Summary ---
DATE OF ADMISSION: 07/07/2018 DATE OF DISCHARGE: 07/12/2018 DISCHARGE DIAGNOSES: 1. Leg pain, multifactorial, improved. 2. Peripheral neuropathy. 3. Chronic leg edema. 4. Gait instability. 5. Uncontrolled hypertension, improved. 6. Glucose intolerance. 7. Excessive daytime sleepiness, possible sleep apnea. 8. Morbid obesity. 9. Controlling personality. 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 HISTORY OF PRESENT ILLNESS: The patient is an 78-year-old woman, who presented to the emergency room with inability to stand due to pain in both distal lower extremity. History and physical are per the dictation of 07/07/2018. HOSPITAL COURSE: The patient was admitted with initial concern of possible cellulitis in lower extremities. However, after evaluation, it appeared more likely that the patient's pains were associated with exacerbation of chronic lower extremity edema as well as an element of peripheral neuropathy and chronic pain syndrome. The patient had been reluctant to continue therapy for weight loss, for elevated blood sugars, for hypertension, and for possible sleep apnea, but after the acute presentation, she was convinced with the assistance of her sons to comply with adequate therapy to allow her to stabilize her condition. She was seen in Pulmonary consultation by Dr. Suman Mcdonnell. He agreed that there might be an element of sleep apnea and possible hypoventilation syndrome. However, the patient repeatedly found logistical reasons not to use the CPAP mask and therefore has not been treated specifically. The patient was given diuretics, several antihypertensives, and a trial of Cymbalta and did gradually improve. Cultures failed to reveal evidence of definite cellulitis and the patient's mild leukocytosis, which was apparent on admission resolved without specific antibiotic therapy. At this point, the patient continues to require maximal assistance for transfers, but is able to ambulate with a front-wheel walker with standby assist. She was able to walk 80 feet with therapy today. Given these findings, the patient is stable for a lower level of care. However, she is not sufficiently stable to be discharged home and therefore, she will be discharged to a [facility] facility for further evaluation and treatment. Extended discussions were held with the patient on a daily basis in order to reiterate the need for compliance with therapy and the fact that the duration of therapy will be prolonged given the severity of the patient's morbid obesity and other symptoms. The patient is cognitively aware of this, but continues to emotionally deny and attempt to find rationale for minimizing therapy. At the time of discharge, the patient's medications will include Tylenol 650 mg q.4 hours p.r.n., amlodipine 5 mg b.i.d., Catapres TTS 1 once a week, clotrimazole t.i.d. for intertriginous rash, Cymbalta 30 mg daily, Lovenox 40 mg at bedtime subcutaneous, Lasix 20 mg daily, potassium chloride 20 mEq b.i.d., and milk of magnesia p.r.n. The patient will also be started on Trulicity 0.75 mg injectable every week subcutaneous. She will be followed up at the [facility] facility and further treatment and longer-term plans will depend on the patient's response to therapy. Hudson Metzger M.D. DR: MAI JOB#: [id number] CC: CHANTAL
--- NOTE | 2018-07-13 12:52 | Diagnostic Imaging Report ---
APPROVED REPORT CPT Code: 84406 Present Symptoms Lower Extremity Pain: Bilateral Comments: Hx of cellulitis Technically difficult study due to patient body habitus. Groin and Thigh area BILATERAL: Imaging reveals a patent deep venous system bilaterally. There is no evidence of thrombus within the femoral, popliteal or tibial segments. The greater saphenous veins are also within normal limits. Doppler indicates normal spontaneous flow within these segments.
--- NOTE | 2018-07-13 12:52 | Diagnostic Imaging Report ---
APPROVED REPORT CPT Code: 45868 Symptoms Comments: Pain and swelling RIGHT LEG: Common femoral artery waveform analysis is within normal limits at rest. Color flow duplex sonography reveals minimal plaque throughout the superficial femoral and popliteal arteries. There is no evidence of occlusion within these segments. The tibioperoneal trunk was not well visualized. Doppler tibial artery waveform analysis is compatible with minimal ischemia at rest. LEFT LEG: Common femoral artery waveform analysis is within normal limits at rest. Color flow duplex sonography reveals minimal plaque throughout the superficial femoral and popliteal arteries. There is no evidence of occlusion within these segments. The tibioperoneal trunk was not well visualized. Doppler tibial artery waveform analysis is compatible with minimal ischemia at rest.
== END 2018-07-12 22:00 | DRG 74 ==
LOC: EMR 14:45 → 4E 15:02 → EDBEDREQ 15:38 → 4E 07-12 00:34
DX: G62.9 Polyneuropathy, unspecified (principal); Z68.43 Body mass index [BMI] 50.0-59.9, adult; G47.33 Obstructive sleep apnea (adult) (pediatric); R60.9 Edema, unspecified; R26.81 Unsteadiness on feet; I10 Essential (primary) hypertension; E74.39 Other disorders of intestinal carbohydrate absorption; G47.30 Sleep apnea, unspecified; H18.51 Endothelial corneal dystrophy; H26.9 Unspecified cataract; E66.01 Morbid (severe) obesity due to excess calories; L30.4 Erythema intertrigo; Z91.19 Patient's noncompliance with other medical treatment and regimen
CPT/HCPCS: 36415; 36600; 71045; 80048; 80053; 81003; 82550; 82803; 82962; 83036; 83605; 83735; 83880; 84443; 84484; 84550; 85025; 85610; 85651; 85730; 87040; 87086; 90471; 90686; 90715; 93005; 93306; 93925; 93970; 94664; 96374; 99285; J1815; J8499